=== PATIENT | male | born 1945 | race Caucasian/White ===

== ENCOUNTER 2018-09-09 07:21 | Emergency (ER) | payer MEDICARE, BC ==
[2018-09-09] MEDS ORDERED: DIPH,PERTUS(ACELL)TETVAC-LF 0.5 ML VIAL IM ONE (07:48)
[2018-09-09] MEDS ORDERED: DILTIAZEM DRIP BOLUS FROM BAG 1 MG SOLN IV ONE (07:51)
--- NOTE | 2018-09-09 07:57 | ED ---
General Adult HPI - General Chief complaint: Fall Stated complaint: Fell Time Seen by Provider: 09/09/18 07:31 Source: patient, EMS, RN notes reviewed Mode of arrival: EMS Limitations: altered mental status - History of Present Illness Initial comments: Patient is a pleasant 73-year-old male presenting to the emergency department following a fall. Patient states he feels better now and has no specific complaints. Patient first denies feeling confused however after difficulty answering some questions he does agree that he does feel somewhat confused. Patient reportedly had a fall off 1 step this morning and did have a skin tear to his left arm. Patient denies any head injury. Patient does believe he is on blood thinners however is not clear which one. Patient reportedly had some difficulty with balance. No chest or back pain. No abdominal pain. No dyspnea. No neck pain. Unclear last tetanus immunization. - Related Data Home Medications Medication Instructions Recorded Confirmed Tamsulosin HCl [Flomax] 0.4 mg PO DAILY PRN 04/20/15 04/20/15 Previous Rx's Medication Instructions Recorded Aspirin EC [Ecotrin Low Dose] 81 mg PO DAILY #30 tablet.dr 04/22/15 Atorvastatin [Lipitor] 80 mg PO DAILY #30 tab 04/22/15 Clopidogrel [Plavix] 75 mg PO DAILY #30 tab 04/22/15 Lisinopril [Zestril] 20 mg PO BID #60 tab 04/22/15 Metoprolol Tartrate [Lopressor] 12.5 mg PO BID #30 tab 04/22/15 Nitroglycerin Sl Tabs [Nitrostat] 0.4 mg SUBLINGUAL Q5M PRN #25 tab 04/22/15 Allergies Allergy/AdvReac Type Severity Reaction Status Date / Time No Known Allergies Allergy Verified 09/09/18 07:47 Review of Systems ROS Statement: Those systems with pertinent positive or pertinent negative responses have been documented in the HPI. ROS Other: All systems not noted in ROS Statement are negative. Constitutional: Denies: fever Eyes: Denies: eye pain ENT: Denies: ear pain Respiratory: Denies: cough, dyspnea Cardiovascular: Denies: chest pain Endocrine: Denies: fatigue Gastrointestinal: Denies: abdominal pain Genitourinary: Denies: dysuria Musculoskeletal: Denies: back pain Skin: Denies: rash Neurological: Reports: as per HPI. Denies: headache, weakness Past Medical History Past Medical History: Hyperlipidemia, Hypertension Additional Past Medical History / Comment(s): kidney stones History of Any Multi-Drug Resistant Organisms: None Reported Past Surgical History: Cholecystectomy, Coronary Bypass/CABG, Hernia Repair Additional Past Surgical History / Comment(s): Bilat. eye implants 12 years ago, Past Anesthesia/Blood Transfusion Reactions: No Reported Reaction Past Psychological History: No Psychological Hx Reported Smoking Status: Never smoker Past Alcohol Use History: None Reported Past Drug Use History: None Reported - Past Family History Mother Additional Family Medical History / Comment(s): Blood clot after fall and General Exam Limitations: no limitations General appearance: alert, in no apparent distress Head exam: Present: atraumatic, normocephalic Eye exam: Present: PERRL, other (Patient does have some weakness with lateral movement of the right eye which he states is chronic. 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 Absent: tenderness Respiratory exam: Present: normal lung sounds bilaterally Cardiovascular Exam: Present: tachycardia Expanded Peripheral pulses: 2+: Radial (R), Radial (L), Posterior Tibialis (R), Posterior Tibialis (L) GI/Abdominal exam: Present: soft. Absent: tenderness Extremities exam: Present: other (Skin flap left) Back exam: Present: normal inspection. Absent: tenderness Neurological exam: Present: alert, altered, CN II-XII intact. Absent: motor sensory deficit Expanded Neurological exam: Present: protecting the airway Patient oriented to: Absent: time Cranial nerves: EOM's Intact: Abnormal Right (Patient states chronic), Facial Sensation: Normal Sensory exam: Upper Extremity Light Touch: Normal, Lower Extremity Light Touch: Normal Motor strength exam: RUE: 5, LUE: 5, RLE: 5, LLE: 5 Eye Response: (4) open spontaneously Motor Response: (6) obeys commands Verbal Response: (4) confused conversation Psychiatric exam: Present: normal affect, normal mood Skin exam: Present: other (Skin tear left arm) Course Vital Signs 09/09/18 09/09/18 09/09/18 07:24 07:30 07:45 Temperature 98.3 F Pulse Rate 141 H 142 H 142 H Respiratory 18 18 20 Rate Blood Pressure 141/90 141/90 128/86 O2 Sat by Pulse 95 95 Oximetry 09/09/18 09/09/18 09/09/18 08:00 08:15 08:30 Temperature Pulse Rate 141 H 142 H 146 H Respiratory 18 20 23 Rate Blood Pressure 128/86 151/90 103/84 O2 Sat by Pulse 97 Oximetry 09/09/18 09/09/18 09/09/18 08:45 09:00 09:15 Temperature Pulse Rate 131 H 86 74 Respiratory 17 18 17 Rate Blood Pressure 117/77 116/75 111/77 O2 Sat by Pulse 98 95 95 Oximetry - Reevaluation(s) Reevaluation #1: 09/09/18 09:12 Patient reevaluated and significantly improved. Rhythm has converted to normal sinus rhythm. Patient is a alert and oriented 3. Patient feels better. Patient and family updated on results and plan. 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 Patient was on a heart monitor secondary to A. fib and to watch for arrhythmias and heart rate. EKG Findings - EKG Comments: EKG Findings:: EKG following conversion shows normal sinus rhythm at 83. [place] 164. QRS 106. QT 372. QTC 437. Left axis. Inferior Q waves. No acute ST change. Medical Decision Making - Lab Data Result diagrams: 09/09/18 08:00 09/09/18 08:00 Lab Results 09/09/18 09/09/18 09/09/18 Range/Units 08:00 08:00 08:00 WBC 7.1 (3.8-10.6) k/uL RBC 5.65 (4.30-5.90) m/uL Hgb 15.6 (13.0-17.5) gm/dL Hct 47.1 (39.0-53.0) % MCV 83.5 (80.0-100.0) fL MCH 27.6 (25.0-35.0) pg MCHC 33.1 (31.0-37.0) g/dL RDW 14.6 (11.5-15.5) % Plt Count 167 (150-450) k/uL Neutrophils % 77 % Lymphocytes % 13 % Monocytes % 7 % Eosinophils % 1 % Basophils % 1 % Neutrophils # 5.5 (1.3-7.7) k/uL Lymphocytes # 0.9 L (1.0-4.8) k/uL Monocytes # 0.5 (0-1.0) k/uL Eosinophils # 0.1 (0-0.7) k/uL Basophils # 0.0 (0-0.2) k/uL PT (9.0-12.0) sec INR (<1.2) APTT (22.0-30.0) sec Sodium 139 (137-145) mmol/L Potassium 4.1 (3.5-5.1) mmol/L Chloride 105 (98-107) mmol/L Carbon Dioxide 23 (22-30) mmol/L Anion Gap 11 mmol/L BUN 20 (9-20) mg/dL Creatinine 1.00 (0.66-1.25) mg/dL Est GFR (CKD-EPI)AfAm 85 (>60 ml/min/1.73 sqM) Est GFR (CKD-EPI)NonAf 73 (>60 ml/min/1.73 sqM) Glucose 133 H (74-99) mg/dL Plasma Lactic Acid Igor (0.7-2.0) mmol/L Calcium 8.9 (8.4-10.2) mg/dL Total Bilirubin 2.2 H (0.2-1.3) mg/dL AST 31 (17-59) U/L ALT 40 (21-72) U/L Alkaline Phosphatase 104 (38-126) U/L Total Creatine Kinase 267 H (55-170) U/L CK-MB (CK-2) 2.4 (0.0-2.4) ng/mL CK-MB (CK-2) Rel Index 0.9 Troponin I 0.015 (0.000-0.034) ng/mL Total Protein 7.6 (6.3-8.2) g/dL Albumin 4.2 (3.5-5.0) g/dL Amylase 71 (30-110) U/L Lipase 189 (23-300) U/L Serum Alcohol <10 mg/dL Blood Type Blood Type Recheck Antibody Screen Spec Expiration Date 09/09/18 09/09/18 09/09/18 Range/Units 08:00 08:00 08:00 WBC (3.8-10.6) k/uL RBC (4.30-5.90) m/uL Hgb (13.0-17.5) gm/dL Hct (39.0-53.0) % MCV (80.0-100.0) fL MCH (25.0-35.0) pg MCHC (31.0-37.0) g/dL RDW (11.5-15.5) % Plt Count (150-450) k/uL Neutrophils % % Lymphocytes % % Monocytes % % Eosinophils % % Basophils % % Neutrophils # (1.3-7.7) k/uL Lymphocytes # (1.0-4.8) k/uL Monocytes # (0-1.0) k/uL Eosinophils # (0-0.7) k/uL Basophils # (0-0.2) k/uL PT 11.2 (9.0-12.0) sec INR 1.1 (<1.2) APTT 23.5 (22.0-30.0) sec Sodium (137-145) mmol/L Potassium (3.5-5.1) mmol/L Chloride (98-107) mmol/L Carbon Dioxide (22-30) mmol/L Anion Gap mmol/L BUN (9-20) mg/dL Creatinine (0.66-1.25) mg/dL Est GFR (CKD-EPI)AfAm (>60 ml/min/1.73 sqM) Est GFR (CKD-EPI)NonAf (>60 ml/min/1.73 sqM) Glucose (74-99) mg/dL Plasma Lactic Acid Igor 1.4 (0.7-2.0) mmol/L Calcium (8.4-10.2) mg/dL Total Bilirubin (0.2-1.3) mg/dL AST (17-59) U/L ALT (21-72) U/L Alkaline Phosphatase (38-126) U/L Total Creatine Kinase (55-170) U/L CK-MB (CK-2) (0.0-2.4) ng/mL CK-MB (CK-2) Rel Index Troponin I (0.000-0.034) ng/mL Total Protein (6.3-8.2) g/dL Albumin (3.5-5.0) g/dL Amylase (30-110) U/L Lipase (23-300) U/L Serum Alcohol mg/dL Blood Type O Negative Blood Type Recheck No Antibody Screen NEGATIVE Spec Expiration Date 09/12/2018 - 2300 - Radiology Data Radiology results: report reviewed (Computed tomography scan of the brain shows significant white matter suggesting severe burden of chronic small vessel ischemia. No acute process. Computed tomography scan the C-spine shows no acute process.), image reviewed (Chest and pelvis x-rays show no acute process) Critical Care Time Critical Care Time: Yes Total Critical Care Time: 33 Disposition Clinical Impression: Fall, Atrial fibrillation with RVR, TIA (transient ischemic attack) Disposition: OTHER INSTITUTION NOT DEFINED Is patient prescribed a controlled substance at d/c from ED?: No Referrals: None,Stated [Primary Care Provider] - 1-2 days Time of Disposition: 09:12 - Out of Hospital Transfer - Req. Specs Out of Hospital Transfer - Requested Specifics: Other Emergency Center
[2018-09-09] MEDS ORDERED: DILTIAZEM 125 MG in SODIUM CHLORIDE 0.9% 100 ML IV SCH (08:00)
--- NOTE | 2018-09-09 08:23 | XR ---
EXAMINATION TYPE: XR chest 1V portable DATE OF EXAM: 09/09/2018 COMPARISON: Prior chest x-ray 04/19/2015 HISTORY: Trauma, abnormal chest x-ray TECHNIQUE: Single frontal view of the chest is obtained. FINDINGS: There is no focal air space opacity, pleural effusion, or pneumothorax seen. The cardiac silhouette size is stable. The aorta is dense. There are cardiac leads. Patient is rotated. The oss eous structures are intact. IMPRESSION: No acute process.
[2018-09-09 08:24] LABS: Basophils % (A) 1 %; Eosinophils # (A) 0.1 k/uL (0-0.7); Eosinophils % (A) 1 %; HCT 47.1 % (39.0-53.0); HGB 15.6 gm/dL (13.0-17.5); Lymphocytes # (A) 0.9 k/uL (1.0-4.8); Lymphocytes % (A) 13 %; MCH 27.6 pg (25.0-35.0); MCHC 33.1 g/dL (31.0-37.0); MCV 83.5 fL (80.0-100.0); Mean Platelet Volume 6.8; Monocytes # (A) 0.5 k/uL (0-1.0); Monocytes % (A) 7 %; Neutrophils # (A) 5.5 k/uL (1.3-7.7); Neutrophils % (A) 77 %; Platelet Count 167 k/uL (150-450); RBC 5.65 m/uL (4.30-5.90); RDW 14.6 % (11.5-15.5); WBC 7.1 k/uL (3.8-10.6)
--- NOTE | 2018-09-09 08:24 | XR ---
EXAMINATION TYPE: XR pelvis AP view DATE OF EXAM: 09/09/2018 CLINICAL HISTORY: Fall with pelvic pain TECHNIQUE: A single AP view of the pelvis is obtained. COMPARISON: None. FINDINGS: There is no acute fracture/dislocation evident in the pelvis. Protuberant osteophyte proje cts from the right superior acetabulum. 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 Surgical clips are noted wit hin the left inguinal region. Multiple phleboliths are present within the pelvis. No acute fracture i s seen within the pelvis. IMPRESSION: There is no acute fracture or dislocation in the pelvis. 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
[2018-09-09 08:35] LABS: ALT 40 U/L (21-72); AST 31 U/L (17-59); Albumin 4.2 g/dL (3.5-5.0); Alcohol <10 mg/dL; Alkaline Phosphatase 104 U/L (38-126); Amylase 71 U/L (30-110); Anion Gap 11 mmol/L; Blood Urea Nitrogen 20 mg/dL (9-20); Calcium 8.9 mg/dL (8.4-10.2); Carbon Dioxide 23 mmol/L (22-30); Chloride 105 mmol/L (98-107); Glucose 133 mg/dL (74-99); INR 1.1 (<1.2); Lipase 189 U/L (23-300); Partial Thromboplastin Time 23.5 sec (22.0-30.0); Potassium 4.1 mmol/L (3.5-5.1); Prothrombin Time 11.2 sec (9.0-12.0); Sodium 139 mmol/L (137-145); Total Bilirubin 2.2 mg/dL (0.2-1.3); Total Protein 7.6 g/dL (6.3-8.2)
--- NOTE | 2018-09-09 08:38 | CT ---
EXAMINATION TYPE: CT brain royce dominguez con DATE OF EXAM: 09/09/2018 COMPARISON: None HISTORY: 73-year-old male trauma, altered mental status, Fall downstairs, pt offers no complaints CT DLP: 1429.2 mGycm Automated exposure control for dose reduction was used. Technique: Examination of the head was done in axial plane without intravenous contrast. Coronal and sagittal reconstructions performed. CT of the cervical spine was obtained in axial plane without intravenous injection of contrast mater ial. Coronal and sagittal reformatted images were obtained from the axial views for evaluation of f ractures, spinal alignment and canal. FINDINGS: Head: There is no evidence of acute intracranial hemorrhage, acute ischemic changes, mass, mass-effect, or extra-axial fluid collection. There is no effacement of cerebral sulci or basal subarachnoid cister ns. There is no hydrocephalus. There is no midline shift. Whittaker-white matter distinction is preserv ed. Severe confluent white matter hypodensities in both cerebral hemispheres. No calvarial fracture. Undulating nasal septum. Mastoid air cells well pneumatized. Mild mucosal thic kening throughout the ethmoid air cells. Cervical spine: No craniocervical junction anomaly, predental space widening, or prevertebral soft tissue swelling. D egenerative changes at the C1 dens articulation. Moderate disc/endplate degenerative change especially from C5 through T1 levels. Bridging anterior pl ate spondylosis at these levels suggestive of dish. Assessment of the spinal canal from C3-C4 and bel ow is limited due to artifact from patient's shoulders. No acute fracture of the cervical spine. Alignment is maintained. There are variable moderate to severe bilateral neural foraminal stenoses. Sagittal and coronal reformatted images confirm above findings. COMBINED IMPRESSION: 1. No acute intracranial abnormality seen. Severe confluent white matter hypodensities suggesting sev ere burden of chronic small vessel ischemic disease. 2. No acute fracture or malalignment of the cervical spine. DISH. Variable moderate to severe neurofo raminal stenoses throughout.
[2018-09-09 08:58] LABS: Creatine Kinase MB 2.4 ng/mL (0.0-2.4); Troponin I 0.015 ng/mL (0.000-0.034)
[2018-09-09] MEDS ORDERED: ASPIRIN 81 MG PO STA (09:19)
[2018-09-09] MEDS ORDERED: SODIUM CHLORIDE 0.9% 500 ML 500 ML IV ONE (09:38)
[2018-09-09] MEDS ORDERED: ACETAMINOPHEN TAB 500 MG TAB PO STA (10:22)
[2018-09-09 10:31] VITALS: BP 113/60; PULSE 65
[2018-09-09] MEDS ORDERED: SODIUM CHLORIDE 0.9% 1,000 ML IV SCH (10:45)
[2018-09-09 10:57] VITALS: RESP 18; TEMP 99.5
== END 2018-09-09 10:58 | disposition short-term general hospital (02) ==
LOC: EC 07:21
DX: G45.9 Transient cerebral ischemic attack, unspecified (principal); I48.91 Unspecified atrial fibrillation; S41.112A Laceration without foreign body of left upper arm, initial encounter; H53.001 Unspecified amblyopia, right eye; R00.0 Tachycardia, unspecified; Z95.1 Presence of aortocoronary bypass graft; Z96.89 Presence of other specified functional implants; Z23 Encounter for immunization; W10.9XXA Fall (on) (from) unspecified stairs and steps, initial encounter; Y93.89 Activity, other specified; Y92.009 Unspecified place in unspecified non-institutional (private) residence as the place of occurrence of the external cause
CPT/HCPCS: 36415; 93005; 86900; 86901; 80053; 82150; 82550; 82553; 83605; 83690; 84484; 85025; 85610; 85730; 86850; 72170; 71045; 72125; 70450; 90715; 99291; 96365; 90471; G0480; 80320

== ENCOUNTER 2020-08-23 06:16 | Observation (INO) | payer BC, MEDICARE ==
[2020-08-23] MEDS ORDERED: SODIUM CHLORIDE 0.9% 500 ML 500 ML IV STA (06:20)
--- NOTE | 2020-08-23 06:27 | ED ---
Recheck HPI <Mireille Butt - Last Filed: 08/23/20 08:19> <Sylvain Blair - Last Filed: 08/23/20 08:28> - General Stated Complaint: Syncope Time Seen by Provider: 08/23/20 06:17 - History of Present Illness Initial Comments: 75-year-old male with history of dyslipidemia, hypertension, CAD with quadruple bypass, recent hernia repair at [facility] 4 days ago, early states of dementia per (on medications) presenting today for chief complaint of syncopal episode. Patient states that his had fallen out of bed, got up from the bed after he heard her fall to help her up when he had a syncopal episode, he states he is unsure how long he was unconscious. Patient states when he woke up he noticed he had had an episode of incontinence while he was unconscious. I spoek with who states that she fell out of bed, patient got out of bed quickly, bent over to help but she told him no so he sat down because he felt nauseated, she states he got up to walk to the bed that was 10 feet away and passed out. She states he did not hit his head but did fall from standing. She believes he is on blood thinners but is not sure. denies shaking/seizure like activity. Patient statse that he has had 2 other syncopal episodes and states they usually happen with use of vicodin or other pain medications--she states he did take one last night for post operative pain. Denies noting pain out of proportion. Patient denied history of syncopal episodes however on chart review and appears in 2014 patient had a syncopal episode while doing yard work within that dictation ended noted that in 2004 patient had a similar episode. Also noted that heart rate in 2019 ~83BPM while today by EMS heart rate of in the 40s and on the day of the previous syncopal episode in 2014 (Patient does have early onset dementia per , thus why patient most likely is poor historian over all).Patient denies chest pain, dyspnea, headache, vomiting, jaw pain, arm pain, dyspnea, leg swelling, dyspnea on exertion. Patient states he was feeling "fine" all week and this episode was unexpected. denies complaints prior to syncope and states she feels this is due to vicodin and getting out of bed too fast.PT denies neck pain, vision cox es, weakness, sensation deficits, abdominal pain. Remaining ROS (-). (Mireille Butt) - Related Data Home Medications Medication Instructions Recorded Confirmed Metoprolol Tartrate [Lopressor] 25 mg PO DAILY 09/09/18 09/09/18 cilostazoL [Pletal] 50 mg PO PC-BID 09/09/18 09/09/18 Previous Rx's Medication Instructions Recorded Atorvastatin [Lipitor] 80 mg PO DAILY #30 tab 04/22/15 Allergies Allergy/AdvReac Type Severity Reaction Status Date / Time No Known Allergies Allergy Verified 08/23/20 07:55 Review of Systems ROS Other: All systems not noted in ROS Statement are negative. <Mireille Butt - Last Filed: 08/23/20 08:19> ROS Other: All systems not noted in ROS Statement are negative. <Sylvain Blair - Last Filed: 08/23/20 08:28> ROS Statement: Those systems with pertinent positive or pertinent negative responses have been documented in the HPI. Past Medical History Past Medical History: Hyperlipidemia, Hypertension Additional Past Medical History / Comment(s): kidney stones History of Any Multi-Drug Resistant Organisms: None Reported Past Surgical History: Cholecystectomy, Coronary Bypass/CABG, Hernia Repair Additional Past Surgical History / Comment(s): Bilat. eye implants 12 years ago, Past Anesthesia/Blood Transfusion Reactions: No Reported Reaction Past Psychological History: No Psychological Hx Reported Past Alcohol Use History: None Reported Past Drug Use History: None Reported - Past Family History Mother Additional Family Medical History / Comment(s): Blood clot after fall and <Mireille Butt - Last Filed: 08/23/20 08:19> General Exam <Mireille Butt - Last Filed: 08/23/20 08:19> - General Exam Comments Initial Comments: General: The patient is awake and alert, in no distress Eye: +3 mm pupils are equal, round and reactive to light, extra-ocular movements are intact. No nystagmus. There is normal conjunctiva bilaterally. No signs of icterus. Ears, nose, mouth and throat: There are moist mucous membranes and no oral lesions. Neck: The neck is supple, there is no tenderness or JVD. Cardiovascular: There is a regular rate and rhythm. No murmur, rub or gallop is appreciated. Respiratory: Lungs are clear to auscultation, respirations are non-labored, br eath sounds are equal. No wheezes, stridor, rales, or rhonchi. Gastrointestinal: Soft, non-distended, non-tender abdomen without masses or organomegaly noted. There is no rebound or guarding present. Musculoskeletal: Normal ROM, no tenderness. Strength 5/5. Sensation intact. Radial and DP pulses equal bilaterally 2+. Neurological: A&O x 3. CN II-XII intact, There are no obvious motor or sensory deficits. Coordination appears grossly intact. Speech is normal. Skin: Skin is warm and dry and no rashes or lesions are noted. No LE edema, calf pain or swelling. Psychiatric: Cooperative, appropriate mood & affect, normal judgment. (Mireille Butt) Course Vital Signs 08/23/20 08/23/20 08/23/20 06:22 06:25 06:35 Temperature 97.6 F Pulse Rate 51 L Pulse Rate [ Sitting Acid Bleacher] Pulse Rate [ 50 L Standing Acid Bleacher ] Pulse Rate [ 46 L Supine Acid Bleacher] Respiratory 18 20 Rate Blood Pressure 148/72 Blood Pressure [Right Arm Sitting] Blood Pressure [Right Arm Standing] Blood Pressure 152/76 [Right Arm Supine] O2 Sat by Pulse 98 98 Oximetry 08/23/20 08/23/20 08/23/20 06:36 06:37 07:30 Temperature 97.6 F Pulse Rate 51 L Pulse Rate [ 48 L Sitting Acid Bleacher] Pulse Rate [ 50 L Standing Acid Bleacher ] Pulse Rate [ Supine Acid Bleacher] Respiratory 20 20 16 Rate Blood Pressure 156/78 Blood Pressure 160/75 [Right Arm Sitting] Blood Pressure 151/72 [Right Arm Standing] Blood Pressure [Right Arm Supine] O2 Sat by Pulse 98 98 100 Oximetry Medical Decision Making - Lab Data Result diagrams: 08/23/20 06:22 08/23/20 06:22 <Mireille Butt - Last Filed: 08/23/20 08:19> - Lab Data Result diagrams: 08/23/20 06:22 08/23/20 06:22 <Sylvain Blair - Last Filed: 08/23/20 08:28> - Medical Decision Making 75yo male presenting for cc of syncope hx of syncope. No cheset pain, pain wtih a deep breath, leg swelling/calf pain or hemoptysis. No dyspnea. Pt is not hypoxic. Troponin (-). chart reviewed appear HR varies from visit to visit- once in 80s and during sycopal visits (2014/today-pt bradycardia). Patient has no symptoms. but given repetitive syncopal episodes throughout years, cardiac hx--myself and attending recommend admission for further monitoring/evaluation. (Mireille Butt) Patient reevaluated and reexamined by myself, Dr. Blair. Patient resting comfortably in bed, symptom-free at this time. Patient denies ever having confusion or weakness or chest pain or dyspnea. I do agree with PAs findings. This includes diagnostic interpretation and treatment plan. Radial and pedal pulses 2/4 bilateral. Case was thus in detail with Dr. Borges, who will admit covering for Dr. carlin (JohnnieSylvain) - Lab Data Lab Results 08/23/20 08/23/20 08/23/20 Range/Units 06:22 06:22 06:22 WBC 6.8 (3.8-10.6) k/uL RBC 4.94 (4.30-5.90) m/uL Hgb 14.1 (13.0-17.5) gm/dL Hct 41.0 (39.0-53.0) % MCV 83.1 (80.0-100.0) fL MCH 28.6 (25.0-35.0) pg MCHC 34.4 (31.0-37.0) g/dL RDW 13.8 (11.5-15.5) % Plt Count 185 (150-450) k/uL MPV 7.5 Neutrophils % 55 % Lymphocytes % 29 % Monocytes % 6 % Eosinophils % 9 % Basophils % 1 % Neutrophils # 3.7 (1.3-7.7) k/uL Lymphocytes # 2.0 (1.0-4.8) k/uL Monocytes # 0.4 (0-1.0) k/uL Eosinophils # 0.6 (0-0.7) k/uL Basophils # 0.0 (0-0.2) k/uL PT 10.3 (9.0-12.0) sec INR 1.0 (<1.2) APTT 21.3 L (22.0-30.0) sec Sodium 136 L (137-145) mmol/L Potassium 4.0 (3.5-5.1) mmol/L Chloride 103 (98-107) mmol/L Carbon Dioxide 26 (22-30) mmol/L Anion Gap 7 mmol/L BUN 15 (9-20) mg/dL Creatinine 0.93 (0.66-1.25) mg/dL Est GFR (CKD-EPI)AfAm >90 (>60 ml/min/1.73 sqM) Est GFR (CKD-EPI)NonAf 79 (>60 ml/min/1.73 sqM) Glucose 161 H (74-99) mg/dL Calcium 8.9 (8.4-10.2) mg/dL Magnesium 1.9 (1.6-2.3) mg/dL Total Bilirubin 1.3 (0.2-1.3) mg/dL AST 23 (17-59) U/L ALT 22 (4-49) U/L Alkaline Phosphatase 113 (38-126) U/L Troponin I (0.000-0.034) ng/mL Total Protein 6.7 (6.3-8.2) g/dL Albumin 3.7 (3.5-5.0) g/dL Urine Color Urine Appearance (Clear) Urine pH (5.0-8.0) Ur Specific [place] (1.001-1.035) Urine Protein (Negative) Urine Glucose (UA) (Negative) Urine Ketones (Negative) Urine Blood (Negative) Urine Nitrite (Negative) Urine Bilirubin (Negative) Urine Urobilinogen (<2.0) mg/dL Ur Leukocyte Esterase (Negative) 08/23/20 08/23/20 Range/Units 06:22 06:47 WBC (3.8-10.6) k/uL RBC (4.30-5.90) m/uL Hgb (13.0-17.5) gm/dL Hct (39.0-53.0) % MCV (80.0-100.0) fL MCH (25.0-35.0) pg MCHC (31.0-37.0) g/dL RDW (11.5-15.5) % Plt Count (150-450) k/uL MPV Neutrophils % % Lymphocytes % % Monocytes % % Eosinophils % % Basophils % % Neutrophils # (1.3-7.7) k/uL Lymphocytes # (1.0-4.8) k/uL Monocytes # (0-1.0) k/uL Eosinophils # (0-0.7) k/uL Basophils # (0-0.2) k/uL PT (9.0-12.0) sec INR (<1.2) APTT (22.0-30.0) sec Sodium (137-145) mmol/L Potassium (3.5-5.1) mmol/L Chloride (98-107) mmol/L Carbon Dioxide (22-30) mmol/L Anion Gap mmol/L BUN (9-20) mg/dL Creatinine (0.66-1.25) mg/dL Est GFR (CKD-EPI)AfAm (>60 ml/min/1.73 sqM) Est GFR (CKD-EPI)NonAf (>60 ml/min/1.73 sqM) Glucose (74-99) mg/dL Calcium (8.4-10.2) mg/dL Magnesium (1.6-2.3) mg/dL Total Bilirubin (0.2-1.3) mg/dL AST (17-59) U/L ALT (4-49) U/L Alkaline Phosphatase (38-126) U/L Troponin I <0.012 (0.000-0.034) ng/mL Total Protein (6.3-8.2) g/dL Albumin (3.5-5.0) g/dL Urine Color Yellow Urine Appearance Clear (Clear) Urine pH 6.0 (5.0-8.0) Ur Specific [place] 1.016 (1.001-1.035) Urine Protein Negative (Negative) Urine Glucose (UA) Negative (Negative) Urine Ketones Negative (Negative) Urine Blood Negative (Negative) Urine Nitrite Negative (Negative) Urine Bilirubin Negative (Negative) Urine Urobilinogen 2.0 (<2.0) mg/dL Ur Leukocyte Esterase Negative (Negative) Disposition Is patient prescribed a controlled substance at d/c from ED?: No Time of Disposition: 07:49 Decision to Admit Reason: Admit from EC Decision Date: 08/23/20 Decision Time: 07:49 <Mireille Butt - Last Filed: 08/23/20 08:19> <Sylvain Blair - Last Filed: 08/23/20 08:28> Clinical Impression: Syncope, Bradycardia Disposition: ADMITTED IP TO THIS HOSP Condition: Stable Referrals: Brian Johns MD [Primary Care Provider] - 1-2 days
[2020-08-23 06:36] LABS: Basophils % (A) 1 %; Eosinophils # (A) 0.6 k/uL (0-0.7); Eosinophils % (A) 9 %; HGB 14.1 gm/dL (13.0-17.5); Lymphocytes % (A) 29 %; MCH 28.6 pg (25.0-35.0); MCHC 34.4 g/dL (31.0-37.0); MCV 83.1 fL (80.0-100.0); Mean Platelet Volume 7.5; Monocytes # (A) 0.4 k/uL (0-1.0); Monocytes % (A) 6 %; Neutrophils # (A) 3.7 k/uL (1.3-7.7); Neutrophils % (A) 55 %; Platelet Count 185 k/uL (150-450); RBC 4.94 m/uL (4.30-5.90); RDW 13.8 % (11.5-15.5); WBC 6.8 k/uL (3.8-10.6)
--- NOTE | 2020-08-23 06:42 | XR ---
EXAMINATION TYPE: XR chest 2V DATE OF EXAM: 08/23/2020 COMPARISON: Chest x-ray September 09, 2018. HISTORY: Syncope and weakness. TECHNIQUE: Frontal and lateral views of the chest are obtained. FINDINGS: Overlying sternal wires and mediastinal clips. Background mild chronic parenchymal changes greatest in left lung base and low lung volumes. There is no new suspicious focal air space opacity, pleural effusion, or pneumothorax seen. The cardiac silhouette size is more prominent and mildly en larged on current study. Suspect surgical change right proximal humerus partially imaged. IMPRESSION: Chronic changes and low lung volumes with mild cardiomegaly, no suspicious new acute pu lmonary process.
[2020-08-23 06:49] LABS: Prothrombin Time 10.3 sec (9.0-12.0)
[2020-08-23 06:59] LABS: ALT 22 U/L (4-49); AST 23 U/L (17-59); African American GFR (CKD) >90 (>60 ml/min/1.73 sqM); Albumin 3.7 g/dL (3.5-5.0); Alkaline Phosphatase 113 U/L (38-126); Anion Gap 7 mmol/L; Blood Urea Nitrogen 15 mg/dL (9-20); Calcium 8.9 mg/dL (8.4-10.2); Carbon Dioxide 26 mmol/L (22-30); Chloride 103 mmol/L (98-107); Glucose 161 mg/dL (74-99); Magnesium 1.9 mg/dL (1.6-2.3); Non-African American GFR(CKD) 79 (>60 ml/min/1.73 sqM); Sodium 136 mmol/L (137-145); Total Bilirubin 1.3 mg/dL (0.2-1.3); Total Protein 6.7 g/dL (6.3-8.2)
[2020-08-23 06:59] LABS: Appearance,Urine Clear (Clear); Bilirubin,Urine Negative (Negative); Blood,Urine Negative (Negative); Color,Urine Yellow; Glucose,Urine (UA) Negative (Negative); Ketones,Urine Negative (Negative); Leukocyte Esterase,Urine Negative (Negative); Nitrite,Urine Negative (Negative); Protein,Urine Negative (Negative); Specific Gravity,Urine 1.016 (1.001-1.035)
[2020-08-23 07:00] LABS: Partial Thromboplastin Time 21.3 sec (22.0-30.0)
--- NOTE | 2020-08-23 07:44 | CT ---
EXAMINATION TYPE: CT brain cspine wo con DATE OF EXAM: 08/23/2020 COMPARISON: Trauma CT September 09, 2018 HISTORY: Fall on thinners with headache and neck pain CT DLP: 1434.4 mGycm. Automated Exposure Control for Dose Reduction was Utilized. TECHNIQUE: CT scan of the head and cervical spine are performed without contrast. FINDINGS: There is no acute intracranial hemorrhage or midline shift identified. Mild ventricular a nd sulcal prominence. More marked confluent low attenuation in the deep and periventricular white mat ter is redemonstrated. Finding favored product of chronic small vessel ischemic change in patient of this age. The calvarium is intact. The globes are intact and the visualized sinuses are clear. Cervical spine is visualized in its entirety from C1 through upper thoracic levels and demonstrates s table and satisfactory alignment without evidence of acute fracture or dislocation. Prevertebral sof t tissue appears within normal limits. The C1-C2 articulation remains within normal limits on bowen l images. Vertebral body heights are maintained. Severe anterior spurring C4-C7 levels redemonstrate d [id number] disc space narrowing C5 at C6-C7-T1 level and mild to moderate disc space narrow ing C4-C5 level redemonstrated. Posterior spur disc complexes efface the anterior thecal sac from C4 to C5 through C7-T1 levels. Axial images show multilevel uncovertebral facet degenerative changes con tributing to multilevel bilateral neural foraminal narrowing, reference right C3-C4 and left C2-C3 le vels noted. Thyroid gland remains within normal limits. Lung apices show no pneumothorax. IMPRESSION: 1. There is no acute fracture or dislocation evident in the cervical spine. 2. No acute intracranial hemorrhage or midline shift is seen. No significant change from prior.
[2020-08-23] MEDS ORDERED: NALOXONE 0.4 MG/ML 1 ML VIAL IV PRN (07:50)
[2020-08-23] MEDS ORDERED: HYDROcodone/APAP 5-325MG 1 EACH TAB PO PRN (18:19)
[2020-08-23] MEDS: MEMANTINE 10 MG TAB PO SCH (20:21)
[2020-08-23] MEDS: DONEPEZIL 10 MG TAB PO SCH (20:21)
[2020-08-24 07:15] VITALS: RESP 20; TEMP 97.5
[2020-08-24] MEDS: MEMANTINE 10 MG TAB PO SCH (08:46)
[2020-08-24] MEDS: DONEPEZIL 10 MG TAB PO SCH (08:46)
[2020-08-24] MEDS ORDERED: amLODIPine 5 MG TAB PO SCH (09:00)
[2020-08-24] MEDS ORDERED: ATORVASTATIN 80 MG TAB PO SCH (09:00)
[2020-08-24] MEDS ORDERED: ASPIRIN 81 MG PO SCH (09:00)
[2020-08-24 09:03] VITALS: BP 166/77; PULSE 70
--- NOTE | 2020-08-24 10:26 | P.CRDCN ---
History of Present Illness Consult date: 08/24/20 History of present illness: CHIEF COMPLAINT: Syncope, bradycardia HISTORY OF PRESENT ILLNESS: This is a 75-year-old male with a past medical history significant for dementia, coronary artery disease with previous PCI and CABG, hypertension, hyperlipidemia, and recent hernia repair.. Patient follows in the office with Dr. Javier. We have been asked to see the patient in consultation for syncope and bradycardia. Patient examined this morning at the bedside. Patient has a history of dementia and is somewhat of a poor historian. There is no family present. Patient states that his fell out of the bed and he was trying to help her off the floor but was unable to. Patient believes he felt a little dizzy and then he passed out. Patient believes there was a loss of consciousness but he believes it was for a very short time. He denied biting his tongue. He denied loss of bowel or bladder. However according to the ER physician note, the patient had urinated on himself. Patient states when he came to that he felt fine. He denied confusion, chest pain, shortness of breath, dizziness or lightheadedness, nausea or vomiting. Patient states he was prescribed [place] for pain after his recent hernia repair and he thinks the [place] contributed to his syncope as this has happened to him in the past with narcotics. DIAGNOSTICS: EKG in the emergency room revealed sinus bradycardia. Heart rate 47. No signs of acute ischemia. No evidence of heart block. The patient is not prescribed any AV сергей blocking agents. Orthostatic blood pressures obtained this morning reveal a blood pressure supine 166/77, blood pressure sitting 135/75, and blood pressure standing 118/72. Chest xray chronic changes and low lung volumes with mild cardiomegaly. No suspicious new acute pulmonary process. Laboratory data: WBC 6.8. Hemoglobin 14.1. Platelet count 185. Sodium 136. Potassium 4.0. BUN 15. Creatinine 0.93. Magnesium 1.9. Troponin negative 1. Current home cardiac medications include Norvasc 5 mg daily, Lipitor 80 mg daily, and aspirin 81 mg daily Patient underwent cardiac catheterization in 2014 with PCI to the distal OM and also the ostial left circumflex. Echocardiogram completed in 2015 revealing ejection fraction 50-55%. REVIEW OF SYSTEMS: At the time of my exam: CONSTITUTIONAL: Denies fever or chills. HEENT: Denies blurred vision, vision changes, or eye pain. Denies hemoptysis CARDIOVASCULAR: Denies chest pain, orthopnea, PND or palpitations RESPIRATORY: No shortness of breath. GASTROINTESTINAL: Denies abdominal pain. Denies nausea or vomiting. HEMATOLOGIC: Denies bleeding disorders. GENITOURINARY: Denies any blood in urine. SKIN: Denies pruitis. Denies rash. PHYSICAL EXAM: VITAL SIGNS: Reviewed. GENERAL: Well-developed in no acute distress. HEENT: Head is normocephalic. Pupils are equal, round. Sclerae anicteric. Mucous membranes of the mouth are moist. Neck supple. No JVD or thyromegaly LUNGS: Respirations even and unlabored. Lungs essentially clear to auscultation bilaterally. HEART: Regular rate and rhythm. S1 and S2 heard. ABDOMEN: Soft. Nondistended. Nontender. EXTREMITIES: Normal range of motion. No clubbing or cyanosis. Peripheral pulses intact. No lower extremity edema NEUROLOGIC: Awake and alert. Oriented x 3. ASSESSMENT: Syncope Sinus bradycardia, no evidence of heart block, patient not on any AV сергей blocking agents Positive orthostatic blood pressure changes, without hypotension Recent left inguinal hernia repair, 08/18/2020, at [facility] Coronary artery disease with previous PCI to distal OM and ostial left circumflex 2014 and CABG 1999 Hypertension Hyperlipidemia Dementia PLAN: Obtain 2D echo to assess cardiac structure and function Continue telemetry monitoring to assess for any cardiac arrhythmias Avoid any AV сергей blocking agents Orthostatic blood pressures reviewed. We will decrease Norvasc to 2.5 mg daily Patient with elevated d-dimer. May be secondary to recent surgery. However will obtain CTA to rule out pulmonary embolism as cause for syncopal episode Check TSH and free T4 Further recommendations pending patient course Nurse practitioner note has been reviewed by physician. Signing provider agrees with the documented findings, assessment, and plan of care. Past Medical History Past Medical History: Coronary Artery Disease (CAD), Dementia, Hyperlipidemia, Hypertension, Syncope Additional Past Medical History / Comment(s): Early dementia, falls, fall with R shoulder dislocation/fx upper arm with surgery (occured in past few months). History of Any Multi-Drug Resistant Organisms: None Reported Past Surgical History: Cholecystectomy, Coronary Bypass/CABG, Hernia Repair Additional Past Surgical History / Comment(s): 08/18/20 L inguinal hernia repair at [facility], R arm fracture with hardware, PCI with stent 2014, 4 vessel CABG in 1999, bilateral cataract removals/lens implants Past Anesthesia/Blood Transfusion Reactions: No Reported Reaction Past Psychological History: No Psychological Hx Reported Additional Psychological History / Comment(s): Pt resides with his spouse. He has early dementia. He no longer drives. Pt's spouse drives and manages pt's medications. He is otherwise independent. Smoking Status: Never smoker Past Alcohol Use History: None Reported Past Drug Use History: None Reported - Past Family History Father Additional Family Medical History / Comment(s): Father was an alcoholic and in a MVA. Mother Additional Family Medical History / Comment(s): Blood clot after fall and Medications and Allergies Home Medications Medication Instructions Recorded Confirmed Type Atorvastatin [Lipitor] 80 mg PO DAILY #30 tab 04/22/15 08/23/20 Rx Aspirin EC [Ecotrin Low Dose] 81 mg PO DAILY 08/23/20 08/23/20 History Donepezil HCl [Aricept] 10 mg PO BID 08/23/20 08/23/20 History HYDROcodone/APAP 5-325MG [[place] 1 tab PO Q8H PRN 08/23/20 08/23/20 History 5-325] Memantine [Namenda] 10 mg PO BID 08/23/20 08/23/20 History amLODIPine [Norvasc] 5 mg PO DAILY 08/23/20 08/23/20 History Allergies Allergy/AdvReac Type Severity Reaction Status Date / Time No Known Allergies Allergy Verified 08/23/20 08:40 Physical Exam Vitals: Vital Signs Temp Pulse Pulse Pulse Pulse Pulse Pulse 08/24/20 08:49 70 70 08/24/20 06:48 97.5 F L 53 L 08/24/20 01:54 97.8 F 57 L 08/23/20 20:00 97.6 F 53 L 08/23/20 18:10 98.1 F 59 L 08/23/20 15:53 97.6 F 52 L 08/23/20 13:04 97.6 F 53 L 08/23/20 11:32 97.9 F 50 L Pulse Resp BP BP BP BP Pulse Ox 08/24/20 08:49 61 135/75 118/72 166/77 08/24/20 06:48 20 158/77 97 08/24/20 01:54 15 110/68 98 08/23/20 20:00 16 163/73 99 08/23/20 18:10 18 170/80 97 08/23/20 15:53 16 138/78 98 08/23/20 13:04 16 144/83 96 08/23/20 11:32 16 138/78 97 Intake and Output 08/23/20 08/24/20 08/24/20 22:59 06:59 14:59 Intake Total 240 Balance 240 Intake: Oral 240 Other: Voiding Method Toilet Toilet # Voids 1 1 Results 08/23/20 06:22 08/23/20 06:22 Current Medications Generic Name Dose Route Start Last Admin Trade Name Freq PRN Reason Stop Dose Admin Hydrocodone Bitart/Acetaminophen 1 each 08/23/20 18:19 Hydrocodone/Apap 5-325mg 1 Each Tab PO Q8H PRN Pain Amlodipine Besylate 5 mg 08/24/20 09:00 08/24/20 08:46 Amlodipine 5 Mg Tab PO 5 mg DAILY RENATA Administration Aspirin 81 mg 08/24/20 09:00 08/24/20 08:45 Aspirin 81 Mg PO 81 mg DAILY RENATA Administration Atorvastatin Calcium 80 mg 08/24/20 09:00 08/24/20 08:46 Atorvastatin 80 Mg Tab PO 80 mg DAILY RENATA Administration Donepezil HCl 10 mg 08/23/20 21:00 08/24/20 08:46 Donepezil 10 Mg Tab PO 10 mg BID RENATA Administration Memantine 10 mg 08/23/20 21:00 08/24/20 08:46 Memantine 10 Mg Tab PO 10 mg BID RENATA Administration Naloxone HCl 0.2 mg 08/23/20 07:50 Naloxone 0.4 Mg/Ml 1 Ml Vial IV Q2M PRN Opioid Reversal Intake and Output 08/23/20 08/24/20 08/24/20 22:59 06:59 14:59 Intake Total 240 Balance 240 Intake: Oral 240 Other: Voiding Method Toilet Toilet # Voids 1 1 08/23/20 06:22 08/23/20 06:22
--- NOTE | 2020-08-24 11:06 | ECHOF ---
Referral Reason:LV function MEASUREMENTS -------- HEIGHT: 180.3 cm WEIGHT: 83.9 kg BP: RVIDd: 3.1 cm (< 3.3) IVSd: 1.2 cm (0.6 - 1.1) LVIDd: 3.5 cm (3.9 - 5.3) LVPWd: 1.5 cm (0.6 - 1.1) IVSs: 1.9 cm LVIDs: 2.3 cm LVPWs: 2.3 cm LAESV Index (A-L): 41.77 ml/m Ao Diam: 3.3 cm (2.0 - 3.7) AV Cusp: 1.9 cm (1.5 - 2.6) LA Diam: 4.6 cm (2.7 - 3.8) MV EXCURSION: 15.568 mm (> 18.000) MV EF SLOPE: 50 mm/s (70 - 150) EPSS: 0.8 cm MV E Geovany: 0.63 m/s MV DecT: 149 ms MV A Geovany: 0.40 m/s MV E/A Ratio: 1.58 RAP: 5.00 mmHg RVSP: 22.99 mmHg FINDINGS -------- This was a technically difficult study with suboptimal views. The left ventricular size is normal. There is mild concentric left ventricular hypertrophy. Overa ll left ventricular systolic function is low-normal with, an EF between 50 - 55 %. There is paradox ical/dysynergic septal motion consistent with left bundle branch block. Normal LAP Grade 1 Diastoli c Dysfunction The right ventricle is normal in size. LA is severely dilated >40 ml/m2 The right atrial size is normal. 5.0mg of Lumason was utilized for enhancement of images Aneurysmal Interatrial septum. Possible PFO The aortic valve is trileaflet and appears structurally normal. The mitral valve is normal. Mild mitral regurgitation is present. The tricuspid valve appears structurally normal. Mild tricuspid regurgitation present. Right vent ricular systolic pressure is normal at < 35 mmHg. Trace/mild (physiologic) pulmonic regurgitation. The aortic root size is normal. IVC Not well visulized. There is no pericardial effusion. CONCLUSIONS -------- 1. The left ventricular size is normal. 2. There is mild concentric left ventricular hypertrophy. 3. Overall left ventricular systolic function is low-normal with, an EF between 50 - 55 %. 4. There is paradoxical/dysynergic septal motion consistent with left bundle branch block. 5. Normal LAP Grade 1 Diastolic Dysfunction 6. LA is severely dilated >40 ml/m2 7. Aneurysmal Interatrial septum. 8. Possible PFO 9. Mild mitral regurgitation is present. 10. Mild tricuspid regurgitation present. 11. Trace/mild (physiologic) pulmonic regurgitation. 12. There is no pericardial effusion. [employer] SALESPERSON: Allyssa Major RDCS
--- NOTE | 2020-08-24 11:40 | P.HPIM ---
History of Present Illness H&P Date: 08/23/20 Chief Complaint: Syncope/bradycardia 75-year-old male patient, history of dementia, CAD with PCI/CABG, hypertension, hyperlipidemia presents to ED with reported history from as patient fell out of bed and she wasn't able to help patient off the floor; patient reports he felt possibly dizzy and feels like he passed out; patient has dementia and unable to provide any sound reliable history the most of the history is obtained from the chart; Workup in ED including an EKG to feels sinus bradycardia without any ischemic changes Patient was checked for orthostatic vital signs and didn't reveal drop in blood pressure from 166/77-118/72 Chest x-ray reveals chronic changes; CBC WBC is 6.8, hemoglobin 14.1 and platelet count of 185; chemical profile sodium 136, potassium 4.2, BUN 15,'s creatinine 0.93 with magnesium of 1.9 and troponin negative 1 Patient is admitted to the hospital for further syncope workup Review of Systems REVIEW OF SYSTEMS: CONSTITUTIONAL: No fever, no malaise, no fatigue. HEENT: No recent visual problems or hearing problems. Denied any sore throat. CARDIOVASCULAR: No chest pain, orthopnea, PND, no palpitations, no syncope. PULMONARY: No shortness of breath, no cough, no hemoptysis. GASTROINTESTINAL: No diarrhea, no nausea, no vomiting, no abdominal pain. NEUROLOGICAL: No headaches, no weakness, no numbness. HEMATOLOGICAL: Denies any bleeding or petechiae. GENITOURINARY: Denies any burning micturition, frequency, or urgency. MUSCULOSKELETAL/RHEUMATOLOGICAL: Denies any joint pain, swelling, or any muscle pain. ENDOCRINE: Denies any polyuria or polydipsia. The rest of the 14-point review of systems is negative. Past Medical History Past Medical History: Coronary Artery Disease (CAD), Dementia, Hyperlipidemia, Hypertension, Syncope Additional Past Medical History / Comment(s): Early dementia, falls, fall with R shoulder dislocation/fx upper arm with surgery (occured in past few months). History of Any Multi-Drug Resistant Organisms: None Reported Past Surgical History: Cholecystectomy, Coronary Bypass/CABG, Hernia Repair Additional Past Surgical History / Comment(s): 08/18/20 L inguinal hernia repair at [facility], R arm fracture with hardware, PCI with stent 2014, 4 vessel CABG in 1999, bilateral cataract removals/lens implants Past Anesthesia/Blood Transfusion Reactions: No Reported Reaction Past Psychological History: No Psychological Hx Reported Additional Psychological History / Comment(s): Pt resides with his spouse. He has early dementia. He no longer drives. Pt's spouse drives and manages pt's medications. He is otherwise independent. Smoking Status: Never smoker Past Alcohol Use History: None Reported Past Drug Use History: None Reported - Past Family History Father Additional Family Medical History / Comment(s): Father was an alcoholic and in a MVA. Mother Additional Family Medical History / Comment(s): Blood clot after fall and Medications and Allergies Home Medications Medication Instructions Recorded Confirmed Type Atorvastatin [Lipitor] 80 mg PO DAILY #30 tab 04/22/15 08/23/20 Rx Aspirin EC [Ecotrin Low Dose] 81 mg PO DAILY 08/23/20 08/23/20 History Donepezil HCl [Aricept] 10 mg PO BID 08/23/20 08/23/20 History HYDROcodone/APAP 5-325MG [[place] 1 tab PO Q8H PRN 08/23/20 08/23/20 History 5-325] Memantine [Namenda] 10 mg PO BID 08/23/20 08/23/20 History amLODIPine [Norvasc] 5 mg PO DAILY 08/23/20 08/23/20 History Allergies Allergy/AdvReac Type Severity Reaction Status Date / Time No Known Allergies Allergy Verified 08/23/20 08:40 Physical Exam Vitals: Vital Signs Temp Pulse Pulse Pulse Pulse Resp BP 08/23/20 07:30 97.6 F 51 L 16 156/78 08/23/20 06:37 50 L 20 08/23/20 06:36 48 L 20 08/23/20 06:35 46 L 20 08/23/20 06:25 50 L 08/23/20 06:22 97.6 F 51 L 18 148/72 BP BP BP Pulse Ox 08/23/20 07:30 100 08/23/20 06:37 151/72 98 08/23/20 06:36 160/75 98 08/23/20 06:35 152/76 98 08/23/20 06:25 08/23/20 06:22 98 Intake and Output 08/22/20 08/23/20 08/23/20 22:59 06:59 14:59 Other: Weight 83.915 kg 83.915 kg - Constitutional General appearance: Present: average body habitus, cooperative, no acute distress - EENT Eyes: Present: anicteric sclerae, EOMI, PERRLA, normal appearance ENT: Present: hearing grossly normal, normal oropharynx Ears: bilateral: normal - Neck Neck: Present: normal ROM. Absent: lymphadenopathy, rigidity, thyromegaly Carotids: negative: bruit present Thyroid: bilateral: normal size, negative: enlarged, nodule - Respiratory Respiratory: bilateral: CTA, negative: rales, rhonchi, wheezing - Cardiovascular Rhythm: regular Heart sounds: normal: S1, S2 Abnormal Heart Sounds: Absent: systolic murmur, diastolic murmur - Gastrointestinal General gastrointestinal: Present: normal bowel sounds, soft. Absent: distended, organomegaly, tenderness - Genitourinary Genitourinary Comment(s): deferred - Integumentary Integumentary: Present: normal turgor. Absent: jaundiced, rash, ulcer - Neurologic Neurologic: Present: CNII-XII intact. Absent: focal deficits - Musculoskeletal Musculoskeletal: Present: gait normal, strength equal bilaterally - Psychiatric Psychiatric: Present: A&O x's 3, appropriate affect, intact judgment & insight Results CBC & Chem 7: 08/23/20 06:22 08/23/20 06:22 Labs: Abnormal Lab Results - Last 24 Hours (Table) 08/23/20 08/23/20 Range/Units 06:22 06:22 APTT 21.3 L (22.0-30.0) sec Sodium 136 L (137-145) mmol/L Glucose 161 H (74-99) mg/dL Thrombosis Risk Factor Assmnt - Choose All That Apply Any of the Below Risk Factors Present?: Yes Other Risk Factors: Yes Each Risk Factor Represents 3 Points: Age 75 years or older Other congenital or acquired thrombophilia - If yes, enter type in comment: No Thrombosis Risk Factor Assessment Total Risk Factor Score: 3 Thrombosis Risk Factor Assessment Level: Moderate Risk Assessment and Plan Assessment: 1. Acute syncope - Patient will be admitted to telemetry; monitor EKG and cardiac enzymes; check 2-D echo - Cardiology is consulted and recommending to avoid AV blocking agents - Monitor orthostatic vital signs; patient had positive orthostatic blood pressure changes without hypotension; Amlodipine dose is decreased to 2.5 mg daily - Elevated d-dimer; plan to obtain CTA chest to rule out PE - Thyroid profile is ordered and pending 2. Bradycardia; asymptomatic - Patient has no evidence of heart block; not on any AV сергей blocking agent - Thyroid profile is ordered and pending 3. Hypertension; patient takes amlodipine 5 mg daily; orthostatic vital signs were positive without hypotension - Cardiology on board and recommended to cut back on amlodipine down to 2.5 mg daily 4. Elevated d-dimer; rule out PE; CTA chest is ordered 6. Hyperlipidemia; continue home dose of Lipitor 80 mg daily 7. CAD with previous PCI and CABG 4 in 1999 DVT prophylaxis SCDs CODE STATUS; full code
--- NOTE | 2020-08-24 11:47 | CT ---
CT CHEST FOR PULMONARY EMBOLISM. EXAMINATION TYPE: CT chest angio for PE DATE OF EXAM: 08/24/2020 INDICATION: Shortness of breath CT DLP: 564 mGycm, Automated exposure control for dose reduction was used. CONTRAST: Patient injected with 100 mL of Isovue 370. COMPARISON: None TECHNIQUE: CT of the chest is performed on a spiral scan at 2 mm thick sections. Study is performed with intravenous contrast timed for evaluation for pulmonary embolism. This will limit additional po rtions of the evaluation. 3-D MIP images reconstructed by the technologist are reviewed on the compu ter in the coronal and sagittal planes. FINDINGS: No persistent filling defects are evident to suggest an acute pulmonary embolism. No mediastinal or hilar adenopathy enlarged by CT criteria is evident. The ascending aorta diameter at the level of the main pulmonary artery is 3.8 cm. The main pulmonary artery diameter at the bifur cation is 2.6 cm. Lung windows are clear. Limited CT section through the upper abdomen are unremarkable. IMPRESSIONS: 1. No acute pulmonary embolism
[2020-08-25] MEDS ORDERED: amLODIPine 2.5 MG TAB PO SCH (09:00)
== END 2020-08-24 15:00 | disposition home or self-care (01) ==
LOC: EC 06:16 → 6NMEDSUR 08:29
PROVIDERS: ADMIT Hospitalist; ATTEND Hospitalist
DX: R55 Syncope and collapse (principal); R00.1 Bradycardia, unspecified; R79.89 Other specified abnormal findings of blood chemistry; I10 Essential (primary) hypertension; E78.5 Hyperlipidemia, unspecified; I25.10 Atherosclerotic heart disease of native coronary artery without angina pectoris; F03.90 Unspecified dementia, unspecified severity, without behavioral disturbance, psychotic disturbance, mood disturbance, and anxiety; R03.1 Nonspecific low blood-pressure reading; R32 Unspecified urinary incontinence; R11.0 Nausea; W18.30XA Fall on same level, unspecified, initial encounter; Z79.899 Other long term (current) drug therapy; Z95.1 Presence of aortocoronary bypass graft; Z79.82 Long term (current) use of aspirin; Z79.891 Long term (current) use of opiate analgesic; Z81.1 Family history of alcohol abuse and dependence; Z90.49 Acquired absence of other specified parts of digestive tract; Z91.81 History of falling; Z79.02 Long term (current) use of antithrombotics/antiplatelets; Z87.442 Personal history of urinary calculi; Z95.5 Presence of coronary angioplasty implant and graft; Z96.1 Presence of intraocular lens; Z20.822 Contact with and (suspected) exposure to COVID-19
CPT/HCPCS: 99285; 36415; 93005; 85379; 80053; 84443; 83735; 84484; 85025; 85610; 85730; 81003; 87635; 71046; 72125; 70450; 71275; G0378 ×2; C8929; Q9950; Q9967; 93306

== ENCOUNTER 2022-12-08 10:31 | Inpatient (IN) | payer MEDICARE ==
[2022-12-08 10:55] LABS: Glucose,Whole Blood 117 mg/dL (70-110)
[2022-12-08] MEDS ORDERED: DIPH,PERTUS(ACELL)TETVAC-LF 0.5 ML VIAL IM ONE (11:01)
[2022-12-08] MEDS ORDERED: SODIUM CHLORIDE 0.9% 500 ML 500 ML IV STA (11:01)
--- NOTE | 2022-12-08 11:08 | ED ---
General Adult HPI - General Chief complaint: Neuro Symptoms/Deficit Stated complaint: poss stroke Time Seen by Provider: 12/08/22 10:35 Source: patient, RN notes reviewed, old records reviewed Mode of arrival: wheelchair Limitations: no limitations - History of Present Illness Initial comments: This is a 77-year-old male presents emergency Department with alexander. Patient is a poor historian so Alexander gives most of the history. Grandson states when the patient woke up the people that were with him stated he was not his normal baseline and there was some right-sided facial droop. According to people that were with EMS that he was normal when he went to bed. This grandson states that when he initially saw that he had right facial droop but that has since gone away patient has no facial droop anymore he is able to speak and he is at his ba seline neurologically according to grandson is able to walk all 4 extremities without problem. Patient has no complaints though again he has significant dementia so his history is not always accurate. Patient denies any chest pain difficulty breathing. Patient denies any recent fever chills. Patient was up for a while and then fell and hit his head and has a small laceration to the lateral aspect of his scalp on the left. - Related Data Home Medications Medication Instructions Recorded Confirmed Aspirin EC [Ecotrin Low Dose] 81 mg PO DAILY 08/23/20 11/01/20 Donepezil HCl [Aricept] 10 mg PO BID 08/23/20 11/01/20 Memantine [Namenda] 10 mg PO BID 08/23/20 11/01/20 Previous Rx's Medication Instructions Recorded Atorvastatin [Lipitor] 80 mg PO DAILY #30 tab 04/22/15 amLODIPine [Norvasc] 2.5 mg PO DAILY #30 tab 08/24/20 Allergies Allergy/AdvReac Type Severity Reaction Status Date / Time No Known Allergies Allergy Verified 12/08/22 10:34 Review of Systems ROS Statement: Those systems with pertinent positive or pertinent negative responses have been documented in the HPI. ROS Other: All systems not noted in ROS Statement are negative. Past Medical History Past Medical History: Coronary Artery Disease (CAD), Dementia, Hyperlipidemia, Hypertension, Syncope Additional Past Medical History / Comment(s): Recent Bradycardia and Syncope X2. Early dementia, falls, fall with right shoulder dislocation/fx upper arm with surgery. History of Any Multi-Drug Resistant Organisms: None Reported Past Surgical History: Cholecystectomy, Coronary Bypass/CABG, Hernia Repair Additional Past Surgical History / Comment(s): Left inguinal hernia repair, right arm fracture with hardware, PCI with stent 2014, 4 vessel CABG in 1999, bilateral cataract removals/lens implants. Past Anesthesia/Blood Transfusion Reactions: No Reported Reaction Past Psychological History: No Psychological Hx Reported Smoking Status: Never smoker Past Alcohol Use History: None Reported Past Drug Use History: None Reported General Exam - General Exam Comments Initial Comments: GENERAL: Patient is well-developed and well-nourished. Patient is nontoxic and well- hydrated and is in mild distress. ENT: Neck is soft and supple. No significant lymphadenopathy is noted. Oropharynx is clear. Moist mucous membranes. Neck has full range of motion without eliciting any pain EYES: The sclera were anicteric and conjunctiva were pink and moist. Extraocular movements were intact and pupils were equal round and reactive to light. Eyelids were unremarkable. PULMONARY: Unlabored respirations. Good breath sounds bilaterally. No audible rales rhonchi or wheezing was noted. CARDIOVASCULAR: There is a regular rate and rhythm without any murmurs gallops or rubs. ABDOMEN: Soft and nontender with normal bowel sounds. SKIN: Skin is clear with no lesions or rashes and otherwise unremarkable. NEUROLOGIC: Patient is alert and oriented x3. Cranial nerves II through XII are grossly intact. Motor and sensory are also intact. Normal speech, volume and content. Symmetrical smile. Cerebellar exam grossly intact. Patient currently has an NIH of MUSCULOSKELETAL: Normal extremities with adequate strength and full range of motion. LYMPHATICS: No significant lymphadenopathy is noted PSYCHIATRIC: Normal psychiatric evaluation. Limitations: no limitations Course Vital Signs 12/08/22 10:34 Temperature 98 F Pulse Rate 62 Respiratory 16 Rate Blood Pressure 136/72 O2 Sat by Pulse 98 Oximetry Medical Decision Making - Medical Decision Making EKG was interpreted by myself. Patient's has a sinus rhythm at 67 bpm MD interval 169 QRS 117 QT intervals 412 QTC is [address] segment elevation or depression.. Was pt. sent in by a medical professional or institution (, PA, [facility], urgent care, hospital, or [facility]...) When possible be specific @ -No Did you speak to anyone other than the patient for history (EMS, parent, family, police, friend...)? What history was obtained from this source @ -Alexander gave almost all the history Did you review nursing and triage notes (agree or disagree)? Why? @ -I reviewed and agree with nursing and triage notes Were old charts reviewed (outside hosp., previous admission, EMS record, old EKG, old radiological studies, urgent care reports/EKG's, [facility] records)? Report findings @ -I reviewed prior lab work prior rate of substance patient Differential Diagnosis (chest pain, altered mental status, abdominal pain women, abdominal pain men, vaginal bleeding, weakness, fever, dyspnea, syncope, headache, dizziness, GI bleed, back pain, seizure, CVA, palpatations, mental health, musculoskeletal)? @ -Differential CVA Ischemic stroke, hemorrhagic stroke, brain tumor, atypical migraine, Wernicke's encephalopathy, seizure, multiple sclerosis, meningitis, encephalitis, hypoglycemia, Guillain-Baxter, electrolytes disturbance, myasthenia gravis.... This is not meant to be an all-inclusive list EKG interpreted by me (3pts min.). @ -As above X-rays interpreted by me (1pt min.). @ -Chest x-ray shows no acute abnormality CT interpreted by me (1pt min.). @ -CT of the brain shows no acute abnormalities. CTA shows no acute abnormality. U/S interpreted by me (1pt. min.). @ -None done What testing was considered but not performed or refused? (CT, X-rays, U/S, labs)? Why? @ -None What meds were considered but not given or refused? Why? @ -None Did you discuss the management of the patient with other professionals (professionals i.e. , PA, [employer], lab, RT, psych nurse, social worker assistant, adjunct latin professor, teacher, compliance review officer, telephonic nurse case manager)? Give summary @ -Spoke with Dr. Gerardo of [facility] and he agreed to admit the patient Was smoking cessation discussed for >3mins.? @ -No Was critical care preformed (if so, how long)? @ -No Were there social determinants of health that impacted care today? How? (Homelessness, low income, unemployed, alcoholism, drug addiction, transportation, low edu. Level, literacy, decrease access to med. care, retirement, rehab)? @ -No Was there de-escalation of care discussed even if they declined (Discuss DNR or withdrawal of care, Hospice)? DNR status @ -No What co-morbidities impacted this encounter? (DM, HTN, Smoking, COPD, CAD, Cancer, CVA, ARF, Chemo, Hep., AIDS, mental health diagnosis, sleep apnea, morbid obesity)? @ -None Was patient admitted / discharged? Hospital course, mention meds given and route, prescriptions, significant lab abnormalities, going to OR and other pertinent info. @ -Patient has small abrasion to the left side of his head which did not need any repair elevation to get a tetanus for this. Patient had CT CTA of his brain and neck and this showed no acute abnormality. However patient did exhibit some strokelike symptoms prior to arrival and he will be admitted for TIA and neuro will be consulted Undiagnosed new problem with uncertain prognosis? @ -No Drug Therapy requiring intensive monitoring for toxicity (Heparin, Nitro, Insulin, Cardizem)? @ -No Were any procedures done? @ -No Diagnosis/symptom? @ -TIA Acute, or Chronic, or Acute on Chronic? @ -Acute Uncomplicated (without systemic symptoms) or Complicated (systemic symptoms)? @ -Complicated Side effects of treatment? @ -No Exacerbation, Progression, or Severe Exacerbation? @ -No Poses a threat to life or bodily function? How? (Chest pain, [place], [place], pneumonia, PE, COPD, DKA, ARF, appy, cholecystitis, CVA, Diverticulitis, Homicidal, Suicidal, threat to staff... and all critical care pts) @ -Yes this could lead to a larger stroke possible morbidity or mortality Diagnosis/symptom? @ -Blunt head trauma Acute, or Chronic, or Acute on Chronic? @ -Acute Uncomplicated (without systemic symptoms) or Complicated (systemic symptoms)? @ -Complicated Side effects of treatment? @ -none Exacerbation, Progression, or Severe Exacerbation] @ -no Poses a threat to life or bodily function? @ -no - Lab Data Result diagrams: 12/08/22 11:04 12/08/22 11:04 Lab Results 12/08/22 12/08/22 12/08/22 Range/Units 10:54 11:04 11:04 WBC 8.9 (3.8-10.6) k/uL RBC 5.73 (4.30-5.90) m/uL Hgb 16.4 (13.0-17.5) gm/dL Hct 49.3 (39.0-53.0) % MCV 86.2 (80.0-100.0) fL MCH 28.6 (25.0-35.0) pg MCHC 33.2 (31.0-37.0) g/dL RDW 14.1 (11.5-15.5) % Plt Count 174 (150-450) k/uL MPV 8.0 Neutrophils % 84 % Lymphocytes % 10 % Monocytes % 5 % Eosinophils % 0 % Basophils % 0 % Neutrophils # 7.5 (1.3-7.7) k/uL Lymphocytes # 0.9 L (1.0-4.8) k/uL Monocytes # 0.4 (0-1.0) k/uL Eosinophils # 0.0 (0-0.7) k/uL Basophils # 0.0 (0-0.2) k/uL PT 10.6 (9.0-12.0) sec INR 1.0 (<1.2) APTT 24.1 (22.0-30.0) sec Sodium (137-145) mmol/L Potassium (3.5-5.1) mmol/L Chloride (98-107) mmol/L Carbon Dioxide (22-30) mmol/L Anion Gap mmol/L BUN (9-20) mg/dL Creatinine (0.66-1.25) mg/dL Est GFR (CKD-EPI)AfAm (>60 ml/min/1.73 sqM) Est GFR (CKD-EPI)NonAf (>60 ml/min/1.73 sqM) Glucose (74-99) mg/dL POC Glucose (mg/dL) 117 H (70-110) mg/dL POC Glu Stretching Press Operator ID John Dozier Calcium (8.4-10.2) mg/dL Total Bilirubin (0.2-1.3) mg/dL AST (17-59) U/L ALT (4-49) U/L Alkaline Phosphatase (38-126) U/L Creatine Kinase (55-170) U/L Troponin I (0.000-0.034) ng/mL Total Protein (6.3-8.2) g/dL Albumin (3.5-5.0) g/dL 06/17/23 06/17/23 Range/Units 11:04 11:04 WBC (3.8-10.6) k/uL RBC (4.30-5.90) m/uL Hgb (13.0-17.5) gm/dL Hct (39.0-53.0) % MCV (80.0-100.0) fL MCH (25.0-35.0) pg MCHC (31.0-37.0) g/dL RDW (11.5-15.5) % Plt Count (150-450) k/uL MPV Neutrophils % % Lymphocytes % % Monocytes % % Eosinophils % % Basophils % % Neutrophils # (1.3-7.7) k/uL Lymphocytes # (1.0-4.8) k/uL Monocytes # (0-1.0) k/uL Eosinophils # (0-0.7) k/uL Basophils # (0-0.2) k/uL PT (9.0-12.0) sec INR (<1.2) APTT (22.0-30.0) sec Sodium 140 (137-145) mmol/L Potassium 4.1 (3.5-5.1) mmol/L Chloride 102 (98-107) mmol/L Carbon Dioxide 27 (22-30) mmol/L Anion Gap 11 mmol/L BUN 14 (9-20) mg/dL Creatinine 0.89 (0.66-1.25) mg/dL Est GFR (CKD-EPI)AfAm >90 (>60 ml/min/1.73 sqM) Est GFR (CKD-EPI)NonAf 82 (>60 ml/min/1.73 sqM) Glucose 127 H (74-99) mg/dL POC Glucose (mg/dL) (70-110) mg/dL POC Glu Stretching Press Operator ID Calcium 9.0 (8.4-10.2) mg/dL Total Bilirubin 2.2 H (0.2-1.3) mg/dL AST 28 (17-59) U/L ALT 29 (4-49) U/L Alkaline Phosphatase 145 H (38-126) U/L Creatine Kinase 165 (55-170) U/L Troponin I <0.012 (0.000-0.034) ng/mL Total Protein 7.9 (6.3-8.2) g/dL Albumin 4.4 (3.5-5.0) g/dL Disposition Clinical Impression: Transient cerebral ischemia, Blunt head trauma Disposition: ADMITTED IP TO THIS HOSP Referrals: Brian Johns MD [Primary Care Provider] - 1-2 days Time of Disposition: 13:46
[2022-12-08 11:25] LABS: ALT 29 U/L (4-49); AST 28 U/L (17-59); African American GFR (CKD) >90 (>60 ml/min/1.73 sqM); Albumin 4.4 g/dL (3.5-5.0); Alkaline Phosphatase 145 U/L (38-126); Anion Gap 11 mmol/L; Blood Urea Nitrogen 14 mg/dL (9-20); Carbon Dioxide 27 mmol/L (22-30); Chloride 102 mmol/L (98-107); Creatine Kinase 165 U/L (55-170); Glucose 127 mg/dL (74-99); Non-African American GFR(CKD) 82 (>60 ml/min/1.73 sqM); Potassium 4.1 mmol/L (3.5-5.1); Sodium 140 mmol/L (137-145); Total Bilirubin 2.2 mg/dL (0.2-1.3); Total Protein 7.9 g/dL (6.3-8.2)
[2022-12-08 11:26] LABS: Partial Thromboplastin Time 24.1 sec (22.0-30.0); Prothrombin Time 10.6 sec (9.0-12.0)
[2022-12-08 11:30] LABS: Basophils % (A) 0 %; Eosinophils % (A) 0 %; HCT 49.3 % (39.0-53.0); HGB 16.4 gm/dL (13.0-17.5); Lymphocytes # (A) 0.9 k/uL (1.0-4.8); Lymphocytes % (A) 10 %; MCH 28.6 pg (25.0-35.0); MCHC 33.2 g/dL (31.0-37.0); MCV 86.2 fL (80.0-100.0); Monocytes # (A) 0.4 k/uL (0-1.0); Monocytes % (A) 5 %; Neutrophils # (A) 7.5 k/uL (1.3-7.7); Neutrophils % (A) 84 %; Platelet Count 174 k/uL (150-450); RBC 5.73 m/uL (4.30-5.90); RDW 14.1 % (11.5-15.5); WBC 8.9 k/uL (3.8-10.6)
--- NOTE | 2022-12-08 12:19 | CT ---
EXAMINATION TYPE: CT brain wo con CT DLP: 1150.4 mGycm, Automated exposure control for dose reduction was used. DATE OF EXAM: 12/08/2022 12:04 PM COMPARISON: 08/23/2020. CLINICAL INDICATION:Male, 77 years old with history of Neuro deficit, acute, stroke suspected, Neuro deficit TECHNIQUE: Brain: Axial CT images of the brain were obtained with coronal and sagittal reformats created and rev iewed. Contrast used: None. Oral contrast used: None. FINDINGS: Brain: Extra-axial spaces: No abnormal extra-axial fluid collections. Ventricular system: Dilatation in proportion to cerebral atrophy. Cerebral parenchyma: Cerebral atrophy. No acute intraparenchymal hemorrhage or mass effect. The potter -white junction is well differentiated. Scattered hypoattenuating areas are seen within the white mat ter. Cerebellum: Unremarkable. Mass effect: No evidence of midline shift. Intracranial vasculature: Atherosclerotic calcifications of the intracranial vessels. Soft tissues: Left scalp edema. Calvarium/osseous structures: No depressed skull fracture. Paranasal sinuses and mastoid air cells: Mild scattered paranasal sinus disease. Visualized orbits: Orbital contents are intact. IMPRESSION: 1. No acute intracranial process. 2. Nonspecific white matter changes, likely secondary to chronic small vessel ischemic disease. 3. Left scalp edema.
--- NOTE | 2022-12-08 12:22 | CT ---
EXAMINATION TYPE: CT angio head neck CT DLP: 494.3 mGycm, Automated exposure control for dose reduction was used. DATE OF EXAM: 12/08/2022 12:15 PM COMPARISON: . CLINICAL INDICATION:Male, 77 years old with history of Neuro deficit, acute, stroke suspected, Neuro deficit TECHNIQUE: Axially acquired helical CT angiogram of the head and neck was obtained with contrast. Axi al images are supplemented with 3D reconstructions which [facility] NASCET criteria used. Contrast used:65ml mL of Isovue 370 with IV Contrast, Oral contrast used: None. FINDINGS: CTA HEAD: No evidence of acute intracranial hemorrhage, mass effect, or midline shift. The ventricles, sulci, a nd cisterns are unremarkable. The visualized portions of the internal carotid arteries, middle cerebral arteries, anterior cerebral arteries, and posterior cerebral arteries are patent. Atherosclerosis of the bilateral carotid arter ies involving the siphon. Left origin of the posterior cerebral artery. Hypoplastic right poste rior communicating cerebral artery. The basilar and vertebral arteries are patent. CTA NECK: Right Carotid System: The common carotid and external carotid arteries are patent. There is approximately 25% stenosis at t he carotid bifurcation secondary to calcified/noncalcified plaquing. The rest of the internal carotid artery is patent. Left Carotid System: The common carotid and external carotid arteries are patent. There is approximately 25% stenosis at t he carotid bifurcation secondary to calcified/noncalcified plaquing. The rest of the internal carotid artery is patent. Vertebral arteries are patent without evidence hemodynamically significant stenosis. There is a three-vessel aortic arch. The origins of the great vessels are patent. No evidence of hemo dynamically significant stenosis. Upper thorax: Conduction leads are present. IMPRESSION: 1. No evidence of dissection of the cervical internal carotid arteries or vertebral arteries or any e vidence of significant stenosis at the carotid bifurcations. 2. No evidence of intracranial high-grade stenosis or intracranial aneurysm.
[2022-12-08] MEDS ORDERED: ASPIRIN 325 MG TAB PO STA (13:46)
--- NOTE | 2022-12-08 14:34 | XR ---
EXAMINATION TYPE: XR chest 2V DATE OF EXAM: 12/08/2022 2:17 PM COMPARISON: Chest radiographs from 08/23/2020 TECHNIQUE: XR chest 2V Frontal and lateral views of the chest. CLINICAL INDICATION:Male, 77 years old with history of altered mental status; FINDINGS: Lungs/Pleura: There is no evidence of pleural effusion, focal consolidation, or pneumothorax. Pulmonary vascularity: Unremarkable. Heart/mediastinum: Cardiomediastinal silhouette is enlarged and stable. Two lead cardiac conduction d evice overlying the left hemithorax with lead tips projecting over the right ventricle and right atri um. Musculoskeletal: No acute osseous pathology. Midline sternotomy wires are noted.Fixation hardware in the right shoulder appears intact. IMPRESSION: 1. No acute cardiopulmonary disease/process. 2. Similar cardiomegaly
--- NOTE | 2022-12-08 14:40 | P.HPIM ---
History of Present Illness H&P Date: 12/08/22 History of present illness; patient is a 77-year-old gentleman with past medical history significant for dementia presented to the ER because of change in mental status. Patient is accompanied by his grandson who is providing the history. According to the grandson, Patient Woke up This Morning and Was Acting Lethargic and Not His Usual Self. Caregivers Who Are around Noticed That He Is Lethargic. Later on They Found the Patient on the Floor. EMS Was Called and Patient Grandson Also Arrived at the Scene, Grandson Noted That the Patient Was Having a Dazed Look and His Speech Was Garbled. There was no obvious weakness of any extremity. Patient was immediately brought to the ER, initially there was concern that patient had right-sided facial droop but it resolved by the time he came to the ER. Initial lab work in the ER showed white count 8.9, hemoglobin 16.4, platelet count 174, sodium 140, potassium 4.1, BUN 14, creatinine 0.89 CTA neck showed no evidence of any dissection of the cervical internal carotid arteries or vertebral arteries or any evidence of significant stenosis at the carotid bifurcations CT head negative for acute stroke REVIEW OF SYSTEMS: CONSTITUTIONAL: No fever, no malaise, no fatigue. HEENT: No recent visual problems or hearing problems. Denied any sore throat. CARDIOVASCULAR: No chest pain, orthopnea, PND, no palpitations, no syncope. PULMONARY: No shortness of breath, no cough, no hemoptysis. GASTROINTESTINAL: No diarrhea, no nausea, no vomiting, no abdominal pain. NEUROLOGICAL: No headaches, no weakness, no numbness. HEMATOLOGICAL: Denies any bleeding or petechiae. GENITOURINARY: Denies any burning micturition, frequency, or urgency. MUSCULOSKELETAL/RHEUMATOLOGICAL: Denies any joint pain, swelling, or any muscle pain. ENDOCRINE: Denies any polyuria or polydipsia. The rest of the 14-point review of systems is negative. PHYSICAL EXAMINATION: GENERAL: The patient is alert , baseline dementia, not in any acute distress. Well developed, well nourished. HEENT: Pupils are round and equally reacting to light. EOMI. No scleral icterus. No conjunctival pallor. Normocephalic, atraumatic. No pharyngeal erythema. No thyromegaly. CARDIOVASCULAR: S1 and S2 present. No murmurs, rubs, or gallops. PULMONARY: Chest is clear to auscultation, no wheezing or crackles. ABDOMEN: Soft, nontender, nondistended, normoactive bowel sounds. No palpable organomegaly. MUSCULOSKELETAL: No joint swelling or deformity. EXTREMITIES: No cyanosis, clubbing, or pedal edema. NEUROLOGICAL: Gross neurological examination did not reveal any focal deficits. SKIN: Laceration right forearm Assessment and plan Fall Syncopal episode TIA Dementia Plan; Monitor vital signs Monitor CBC Monitor CMP Check orthostatics 2-D echo ordered Ultrasound of carotids ordered Lipid panel ordered Consult neurology PT and OT consulted DVT prophylaxis: Past Medical History Past Medical History: Coronary Artery Disease (CAD), Dementia, Hyperlipidemia, Hypertension, Syncope Additional Past Medical History / Comment(s): Recent Bradycardia and Syncope X2. Early dementia, falls, fall with right shoulder dislocation/fx upper arm with surgery. History of Any Multi-Drug Resistant Organisms: None Reported Past Surgical History: Cholecystectomy, Coronary Bypass/CABG, Hernia Repair Additional Past Surgical History / Comment(s): Left inguinal hernia repair, right arm fracture with hardware, PCI with stent 2014, 4 vessel CABG in 1999, bilateral cataract removals/lens implants. Past Anesthesia/Blood Transfusion Reactions: No Reported Reaction Past Psychological History: No Psychological Hx Reported Smoking Status: Never smoker Past Alcohol Use History: None Reported Past Drug Use History: None Reported Medications and Allergies Home Medications Medication Instructions Recorded Confirmed Type Atorvastatin [Lipitor] 80 mg PO DAILY #30 tab 04/22/15 11/01/20 Rx Aspirin EC [Ecotrin Low Dose] 81 mg PO DAILY 08/23/20 11/01/20 History Donepezil HCl [Aricept] 10 mg PO BID 08/23/20 11/01/20 History Memantine [Namenda] 10 mg PO BID 08/23/20 11/01/20 History amLODIPine [Norvasc] 2.5 mg PO DAILY #30 tab 08/24/20 11/01/20 Rx Allergies Allergy/AdvReac Type Severity Reaction Status Date / Time No Known Allergies Allergy Verified 12/08/22 10:34 Physical Exam Vitals: Vital Signs Temp Pulse Resp BP Pulse Ox 12/08/22 10:34 98 F 62 16 136/72 98 Intake and Output 12/07/22 12/08/22 12/08/22 22:59 06:59 14:59 Other: Weight 108.862 kg Results CBC & Chem 7: 12/08/22 11:04 12/08/22 11:04 Labs: Abnormal Lab Results - Last 24 Hours (Table) 12/08/22 12/08/22 12/08/22 Range/Units 10:54 11:04 11:04 Lymphocytes # 0.9 L (1.0-4.8) k/uL Glucose 127 H (74-99) mg/dL POC Glucose (mg/dL) 117 H (70-110) mg/dL Total Bilirubin 2.2 H (0.2-1.3) mg/dL Alkaline Phosphatase 145 H (38-126) U/L
--- NOTE | 2022-12-08 15:55 | US ---
EXAMINATION TYPE: US carotid duplex BILAT DATE OF EXAM: 12/08/2022 COMPARISON: 04/19/2015 CLINICAL INDICATION: Male, 77 years old with history of Syncope; confused, syncope today TECHNIQUE: Carotid duplex ultrasound examination. Indirect Doppler criteria was utilized. FINDINGS: EXAM MEASUREMENTS: RIGHT: Peak Systolic Velocity (PSV) cm/sec ----- Right CCA: 57.0 ----- Right ICA: 66.6 ----- Right ECA: 84.5 ICA/CCA ratio: 1.2 RIGHT: End Diastole cm/sec ----- Right CCA: 0.0 ----- Right ICA: 11.9 ----- Right ECA: 0.0 LEFT: Peak Systolic Velocity (PSV) cm/sec ----- Left CCA: 87.2 ----- Left ICA: 73.0 ----- Left ECA: 146.0 ICA/CCA ratio: 0.8 LEFT: End Diastole cm/sec ----- Left CCA: 7.5 ----- Left ICA: 13.9 ----- Left ECA: 7.8 VERTEBRALS (direction of flow): Right Vertebral: not seen Left Vertebral: Antegrade Rhythm: Normal [employer]OR[employer] MACHINE NOTES: Mild heterogeneous plaque with no significant stenosis IMPRESSION: Less than 50% bilateral carotid bifurcations. Criteria for Assigning % of Stenosis / Diameter reduction (Estimation based on the indirect measurements of the internal carotid artery velocities (ICA PSV). 1. Normal (no stenosis)=ICA PSV < 125 cm/s: ratio < 2.0: ICA EDV<40 cm/s. 2. Less than 50% stenosis=ICA PSV < 125 cm/s: ratio < 2.0: ICA EDV<40 cm/s. 3. 50 to 69% stenosis=ICA PSV of 125 to 230 cm/s: ration 2.0 ? 4.0: ICA EDV 40-100 cm/s. 4. Greater than 70% stenosis to near occlusion= ICA PSV > 230 cm/s: ratio > 4.0: ICA EDV > 100 cm/s. 5. Near occlusion= ICA PSV velocities may be low or undetectable: variable ratio and ICA EDV. 6. Total occlusion=unable to detect flow.
[2022-12-08] MEDS: ATORVASTATIN 80 MG TAB PO SCH (20:00)
[2022-12-08] MEDS: MEMANTINE 10 MG TAB PO SCH (20:00)
[2022-12-08] MEDS: DONEPEZIL 10 MG TAB PO SCH (20:00)
[2022-12-09 07:52] LABS: Basophils % (A) 0 %; Eosinophils # (A) 0.1 k/uL (0-0.7); Eosinophils % (A) 1 %; HCT 48.4 % (39.0-53.0); HGB 15.8 gm/dL (13.0-17.5); Lymphocytes % (A) 11 %; MCH 28.6 pg (25.0-35.0); MCHC 32.6 g/dL (31.0-37.0); MCV 87.8 fL (80.0-100.0); Mean Platelet Volume 7.5; Monocytes # (A) 0.7 k/uL (0-1.0); Monocytes % (A) 8 %; Neutrophils % (A) 80 %; Platelet Count 184 k/uL (150-450); RBC 5.51 m/uL (4.30-5.90); RDW 13.9 % (11.5-15.5); WBC 8.8 k/uL (3.8-10.6)
[2022-12-09 08:19] LABS: ALT 27 U/L (4-49); AST 27 U/L (17-59); African American GFR (CKD) >90 (>60 ml/min/1.73 sqM); Alkaline Phosphatase 151 U/L (38-126); Anion Gap 9 mmol/L; Blood Urea Nitrogen 11 mg/dL (9-20); Calcium 8.7 mg/dL (8.4-10.2); Carbon Dioxide 27 mmol/L (22-30); Chloride 103 mmol/L (98-107); Glucose 122 mg/dL (74-99); Non-African American GFR(CKD) 84 (>60 ml/min/1.73 sqM); Potassium 4.1 mmol/L (3.5-5.1); Sodium 139 mmol/L (137-145); Total Bilirubin 2.2 mg/dL (0.2-1.3); Total Protein 7.3 g/dL (6.3-8.2)
[2022-12-09] MEDS ORDERED: ASPIRIN 325 MG TAB PO SCH (09:00)
[2022-12-09] MEDS: DONEPEZIL 10 MG TAB PO SCH ×2 (09:31→20:07)
[2022-12-09] MEDS: MEMANTINE 10 MG TAB PO SCH ×2 (09:31→20:07)
[2022-12-09] MEDS: ASPIRIN 81 MG PO SCH (09:31)
[2022-12-09] MEDS: amLODIPine 2.5 MG TAB PO SCH (09:31)
[2022-12-09] MEDS ORDERED: CLOPIDOGREL 75 MG TAB PO STA (13:05)
--- NOTE | 2022-12-09 13:05 | P.CNNES ---
History of Present Illness Consult date: 12/09/22 Requesting physician: Duke Farfan Reason for Consult: Stroke/TIA History of Present Illness: Patient is a 77-year-old right-handed male with history of coronary artery disease, dementia, pacemaker came to the hospital yesterday at 10:31 AM, brought by patient's family for strokelike symptoms. Patient not able to provide any history. I spoke to patient's son, who provided with all the history. Patient lives with his son and [id number]. Patient has history of dementia for last 3 years, and someone at home and is always present to watch him. The night prior to arrival he was also doing well. Patient's son states that yesterday they saw him at 7 AM when he was up in the chair doing well. After the son left at 7 AM, the caregiver was present at home. He had breakfast with donut and water and was doing well. At around 9:30 AM, the caregiver was downstairs, when she heard a thud sound and when she went upstairs, it appears patient had apparently fallen to the ground. He had bumped his forehead and arm and was trying to get out of the floor, was pale. He was noted to have slurred speech, could not get up, could not walk. This was an acute change in his condition, and there was right facial droop noted. At baseline patient walks without any assistive device. He does have a walker at home but does not use it. He speaks well otherwise. No previous history of lazy eye. Vital signs on arrival blood pressure 136/72, pulse rate 62 temperature 98.0. EKG shows sinus rhythm with sinus arrhythmia. CT head showed no acute intracranial process. Nonspecific white matter changes, likely secondary to chronic small vessel ischemic disease. Left scalp edema. Chest x-ray showed no acute process. Similar cardiomegaly. Patient has history of cardiac stent put in 1999. He also used to have vasovagal syncope on looking at the blood or with any pain. Patient had undergone pacemaker placement in 2014. Patient had a syncopal spell in July 2021, and he broke his arm. Since then he has not had any more syncopal spells. He has been doing very well with no passing out. Home medications include aspirin 81 mg, Namenda 10 mg twice a day, donepezil 10 mg twice a day, amlodipine 2.5 mg and Lipitor 80 mg daily. Patient has never smoked, used to drink alcohol heavily for many years, quit 20 years ago. Review of Systems Constitutional: Denies chills, Denies fever Eyes: denies blurred vision, denies diplopia, denies pain Ears: bilateral: decreased hearing, deny: ear discharge, earache Ears, nose, mouth and throat: Denies headache, Denies sore throat Cardiovascular: Denies chest pain, Denies shortness of breath Respiratory: Denies cough, Denies excessive sputum Gastrointestinal: Denies abdominal pain, Denies diarrhea, Denies nausea, Denies vomiting Musculoskeletal: Denies low back pain, Denies myalgias, Denies neck pain Integumentary: Denies pruritus, Denies rash Neurological: Reports as per HPI Psychiatric: Reports memory loss, Denies anxiety, Denies depression Past Medical History Past Medical History: Coronary Artery Disease (CAD), Dementia, Hyperlipidemia, Hypertension, Syncope Additional Past Medical History / Comment(s): Recent Bradycardia and Syncope X2. Early dementia, falls, fall with right shoulder dislocation/fx upper arm with surgery. History of Any Multi-Drug Resistant Organisms: None Reported Past Surgical History: Cholecystectomy, Coronary Bypass/CABG, Hernia Repair, Pacemaker Additional Past Surgical History / Comment(s): Left inguinal hernia repair, right arm fracture with hardware, PCI with stent 2014, 4 vessel CABG in 1999, bilateral cataract removals/lens implants. Past Anesthesia/Blood Transfusion Reactions: No Reported Reaction Type of Cardiac Device: Permanent Pacemaker Device Placement Date:: Past Psychological History: No Psychological Hx Reported Additional Psychological History / Comment(s): Early Dementia. Smoking Status: Never smoker Past Alcohol Use History: None Reported Past Drug Use History: None Reported Medications and Allergies Home Medications Medication Instructions Recorded Confirmed Type Aspirin EC [Ecotrin Low Dose] 81 mg PO DAILY 08/23/20 12/08/22 History Donepezil HCl [Aricept] 10 mg PO BID 08/23/20 12/08/22 History Memantine [Namenda] 10 mg PO BID 08/23/20 12/08/22 History amLODIPine [Norvasc] 2.5 mg PO DAILY #30 tab 08/24/20 12/08/22 Rx Atorvastatin [Lipitor] 80 mg PO HS 12/08/22 12/08/22 History Allergies Allergy/AdvReac Type Severity Reaction Status Date / Time No Known Allergies Allergy Verified 12/08/22 15:13 Physical Examination - Vital Signs Vital Signs: Vital Signs Temp Pulse Resp BP Pulse Ox 12/09/22 09:29 94 L 12/09/22 08:00 97.8 F 70 17 138/72 97 12/09/22 04:00 97.6 F 64 14 145/76 96 12/09/22 01:59 57 L 16 12/09/22 00:00 97.6 F 57 L 16 156/85 98 12/08/22 20:00 97.8 F 57 L 16 146/79 97 Intake and Output 12/08/22 12/09/22 12/09/22 22:59 06:59 14:59 Intake Total 180 430 Output Total 300 Balance 180 130 Intake: IV 10 Invasive Line 1 10 Oral 180 420 Output: Urine 300 Other: Voiding Method External Catheter External Catheter External Catheter # Voids 1 4 # Bowel Movements 1 Patient is an elderly male, in no acute distress. Patient is alert awake oriented, not well oriented related to his dementia. He could not tell the current month or the year. He states that he lives in [facility], although he lives in [place] it appears. He knows his name, but does not know his age or date of . Patient states that he lives in his mom and dad house. He believes that he is in his house at this time. Speech is mild to moderately dysarthric. He was able to name knuckles, and ear but not the lobe. Patient has some problem with repetition although does it with mistakes. Some paraphasic errors were noticed. Attention, concentration and fund of knowledge is very limited. On cranial nerve examination, pupils are small, 3 mm, equal, round and reacting to light, visual traylor are full on confrontation, with no neglect on double simultaneous stimulation. Extraocular muscles reveal that patient has disconjugate primary gaze. His right eye is adducted in the primary gaze. Patient appears to have moderate left lateral rectus palsy, slightly more than the right. The right eye does abduct all the way to the right, but then comes t o the primary gaze with partial weakness. He only saw double vision once. Patient has prominent nystagmus bilateral end gaze. Patient has right facial droop. His tongue protrudes the midline. Slight drooling from the left. Palatal elevation and sensation normal, hearing is moderately decreased and shoulder shrug normal, facial sensation normal. On muscle strength testing, there is mild right pronator drift and the strength is normal in arms and legs distally and proximally, except right hip flexion which is 5-as compared to the right. Patient has right leg drift as well. Deep tendon reflexes are (right/left) biceps 2/2, brachioradialis 1+/1+, knees 2+/3, ankles 1/1 and plantar is up on the right, down left. Sensory to touch is equal with no neglect on double simultaneous stimulation. Cerebellar functions showed mild ataxia for [id number] testing on the left side but not on the right. No dysdiadochokinesia. No ataxia for [id number] testing on either side. Tone and bulk of muscles normal. Gait deferred.. On general examination, there is no carotid bruit or murmur, S1-S2 audible. Chest is clear on consultation. Abdomen is soft nontender. No organomegaly, bowel sounds present. Peripheral pulses are present. No edema. Results - Laboratory Findings CBC and BMP: 12/09/22 07:11 12/09/22 07:11 Abnormal Lab Findings: Abnormal Labs 12/08/22 12/08/22 12/08/22 10:54 11:04 11:04 Lymphocytes # 0.9 L Glucose 127 H POC Glucose (mg/dL) 117 H Total Bilirubin 2.2 H Alkaline Phosphatase 145 H 12/09/22 07:11 Lymphocytes # Glucose 122 H POC Glucose (mg/dL) Total Bilirubin 2.2 H Alkaline Phosphatase 151 H Assessment and Plan Assessment: * Probable acute ischemic stroke manifesting with disconjugate gaze, slurred speech, mild right hemiparesis and left arm ataxia. Symptoms suggestive of possible brain stem location with crossed findings. * Hypertension * Coronary artery disease * Dementia, at least moderate degree * Past history of alcoholism * Pacemaker * Long-standing history of vasovagal syncope from sight of blood. Plan: * Patient has symptoms of acute CVA. Patient did not receive TPA. * Patient was on aspirin 81 mg daily. We will start him on Plavix with loading dose of 300 mg 1, followed by Plavix 75 mg daily. * Fasting a.m. lipid panel, hemoglobin A1c * 2-D echo with bubble study to rule out PFO * CTA of head and neck revealed no evidence of dissection of the cervical internal carotid arteries or vertebral arteries or any evidence of significant stenosis in the carotid bifurcation. No evidence of intracranial high-grade stenosis or intracranial aneurysm. * Carotid Doppler revealed less than 50% stenosis bilateral carotid bifurcation. Antegrade flow in the left vertebral artery, and right vertebral artery not seen. * Patient cannot have MRI of the brain because of pacemaker. Consider repeating CT of head in a couple days to evaluate for any evolving stroke. * PT OT evaluate * Fall precautions * EEG for recurrent syncopal spells. * Ophthalmology consultation for disconjugate gaze * DVT prophylaxis: Heparin 5000 Units subcutaneously twice a day. * Dr. Mata Camejo Will resume neurology service in the morning. Thank you for the consult. Time with Patient: Greater than 30
[2022-12-09 13:06] LABS: Chol/HDL Ratio 2.91 Ratio; LDL Cholesterol,Calculated 45.8 mg/dL (0.0-131.0)
--- NOTE | 2022-12-09 13:44 | P.PN ---
Subjective Progress Note Date: 12/09/22 patient is a 77-year-old gentleman with past medical history significant for dementia presented to the ER because of change in mental status. Patient is accompanied by his grandson who is providing the history. According to the grandson, Patient Woke up This Morning and Was Acting Lethargic and Not His Usual Self. Caregivers Who Are around Noticed That He Is Lethargic. Later on They Found the Patient on the Floor. EMS Was Called and Patient Grandson Also Arrived at the Scene, Grandson Noted That the Patient Was Having a Dazed Look and His Speech Was Garbled. There was no obvious weakness of any extremity. Patient was immediately brought to the ER, initially there was concern that patient had right-sided facial droop but it resolved by the time he came to the ER. Initial lab work in the ER showed white count 8.9, hemoglobin 16.4, platelet count 174, sodium 140, potassium 4.1, BUN 14, creatinine 0.89 CTA neck showed no evidence of any dissection of the cervical internal carotid arteries or vertebral arteries or any evidence of significant stenosis at the carotid bifurcations CT head negative for acute stroke 12/09. Patient seen and examined. Patient history of dementia. Currently not in acute distress. No focal motor or sensory deficit REVIEW OF SYSTEMS: CONSTITUTIONAL: No fever, no malaise,. CARDIOVASCULAR: No chest pain, no palpitations, no syncope. PULMONARY: No shortness of breath, no cough, GASTROINTESTINAL: No diarrhea, no nausea, no vomiting, no abdominal pain. NEUROLOGICAL: No headaches, no weakness, PHYSICAL EXAMINATION: GENERAL: The patient is alert, baseline dementia, not in any acute distress. Well developed, well nourished. HEENT: Pupils are round and equally reacting to light. EOMI. No scleral icterus. No conjunctival pallor. Normocephalic, atraumatic. No pharyngeal erythema. No thyromegaly. CARDIOVASCULAR: S1 and S2 present. No murmurs, rubs, or gallops. PULMONARY: Chest is clear to auscultation, no wheezing or crackles. ABDOMEN: Soft, nontender, nondistended, normoactive bowel sounds. No palpable organomegaly. MUSCULOSKELETAL: No joint swelling or deformity. EXTREMITIES: No cyanosis, clubbing, or pedal edema. NEUROLOGICAL: Gross neurological examination did not reveal any focal deficits. SKIN: No rashes. Assessment and plan Fall Syncopal episode Acute CVA Dementia Monitor vital signs Monitor CBC Monitor CMP Continue telemetry monitoring Continue neuro checks Follow-up on 2-D echo Continue aspirin, neurology added Plavix Continue Lipitor CTA of head and neck revealed no evidence of dissection of the cervical internal carotid arteries or vertebral arteries or any evidence of significant stenosis in the carotid bifurcation. No evidence of intracranial high-grade stenosis or intracranial aneurysm. Carotid Doppler revealed less than 50% stenosis bilateral carotid bifurcation. Antegrade flow in the left vertebral artery, and right vertebral artery not seen. Patient cannot have MRI of the brain because of pacemaker. Consider repeating CT of head in a couple days to evaluate for any evolving stroke. Follow-up on neurology recommendation Objective - Vital Signs Vital signs: Vital Signs Temp 98.4 F 12/09/22 11:50 Pulse 56 L 12/09/22 11:50 Resp 17 12/09/22 11:50 BP 129/62 12/09/22 11:50 Pulse Ox 97 12/09/22 11:50 FiO2 Intake & Output 12/08/22 12/09/22 12/09/22 18:59 06:59 18:59 Intake Total 180 430 Output Total 300 Balance 180 130 Weight 108.862 kg Intake: IV 10 Invasive Line 1 10 Oral 180 420 Output: Urine 300 Other: Voiding Method External Catheter External Catheter External Catheter # Voids 1 4 # Bowel Movements 1 1 - Labs CBC & Chem 7: 12/09/22 07:11 12/09/22 07:11 Labs: Abnormal Lab Results - Last 24 Hours (Table) 12/09/22 Range/Units 07:11 Glucose 122 H (74-99) mg/dL Total Bilirubin 2.2 H (0.2-1.3) mg/dL Alkaline Phosphatase 151 H (38-126) U/L HDL Cholesterol 36.80 L (40.00-60.00) mg/dL
[2022-12-09] MEDS: HEPARIN SODIUM,PORCINE/PF 5,000 UNIT/0.5 ML SYRINGE SQ SCH ×2 (15:51→23:44)
[2022-12-09] MEDS: ATORVASTATIN 80 MG TAB PO SCH (20:07)
[2022-12-10] MEDS: MEMANTINE 10 MG TAB PO SCH ×2 (08:54→20:09)
[2022-12-10] MEDS: amLODIPine 2.5 MG TAB PO SCH (08:54)
[2022-12-10] MEDS: ASPIRIN 81 MG PO SCH (08:54)
[2022-12-10] MEDS: DONEPEZIL 10 MG TAB PO SCH ×2 (08:54→20:09)
[2022-12-10] MEDS: CLOPIDOGREL 75 MG TAB PO SCH (08:54)
[2022-12-10] MEDS: HEPARIN SODIUM,PORCINE/PF 5,000 UNIT/0.5 ML SYRINGE SQ SCH ×3 (08:54→23:45)
--- NOTE | 2022-12-10 13:03 | CA ---
Transthoracic Echo Report Name: Aaron Ricks Age: 77 Gender: M : 1945 Exam Date: 12/10/2022 08:31 Exam Location: [facility] Ht (in): 68 Wt (lb): 240 Ordering Physician: Tanner Gerardo MD Attending/Referring Phys: Film Examiner Jesenia Malone [facility] [place] Procedure CPT: Indications: stroke Cardiac Hx: Technical Quality: Technically difficult study Contrast 1: Lumason Total Dose (mL): 5 Contrast 2: Total Dose (mL): MEASUREMENTS (Male / Female) Normal Values 2D ECHO LV Diastolic Diameter PLAX 4.6 cm 4.2 - 5.9 / 3.9 - 5.3 cm LV Systolic Diameter PLAX 3.1 cm IVS Diastolic Thickness 0.9 cm 0.6 - 1.0 / 0.6 - 0.9 cm LVPW Diastolic Thickness 0.9 cm 0.6 - 1.0 / 0.6 - 0.9 cm LV Relative Wall Thickness 0.4 RV Internal Dim ED PLAX 3.2 cm M-MODE Aortic Root Diameter MM 3.2 cm LA Systolic Diameter MM 4.1 cm LA Ao Ratio MM 1.3 AV Cusp Separation MM 2.1 cm DOPPLER AV Peak Velocity 132.7 cm/s AV Peak Gradient 7.0 mmHg AV Mean Velocity 90.9 cm/s AV Mean Gradient 3.8 mmHg AV Velocity Time Integral 23.9 cm LVOT Peak Velocity 96.5 cm/s LVOT Peak Gradient 3.7 mmHg LVOT Velocity Time Integral 18.4 cm Mitral E Point Velocity 45.1 cm/s Mitral A Point Velocity 73.4 cm/s Mitral E to A Ratio 0.6 MV Deceleration Time 322.3 ms LV E' Lateral Velocity 13.2 cm/s Mitral E to LV E' Lateral Ratio 3.4 LV E' Septal Velocity 6.5 cm/s Mitral E to LV E' Septal Ratio 7.0 TR Peak Velocity 206.3 cm/s TR Peak Gradient 17.0 mmHg Right Ventricular Systolic Press 22.2 mmHg FINDINGS Left Ventricle Normal Left ventricular size, wall thickness, systolic function with no obvious regional wall motion abnormalities. Left ventricular ejection fraction is estimated at 55-60%. Right Ventricle Moderate right ventricular dilatation. Mildly reduced right ventricular global systolic function. Right Atrium Mild right atrial dilatation. Left Atrium Normal left atrial size. Mitral Valve Structurally normal mitral valve. Trace mitral regurgitation. Aortic Valve Trileaflet aortic valve. No aortic regurgitation. No aortic stenosis. Tricuspid Valve Structurally normal tricuspid valve. Mild tricuspid regurgitation. Pulmonic Valve Structurally normal pulmonic valve. Mild pulmonic regurgitation. Pericardium Normal pericardium. Aorta Normal size aortic root and proximal ascending aorta. CONCLUSIONS Left ventricular ejection fraction 55-60% Normal left ventricular thickness Mild right atrial enlargement Mildly dilated right ventricle with mildly reduced right ventricular function Mild tricuspid regurgitation No pericardial effusion Previewed by: Dr. Shawn Hunter DO (Electronically Signed) Final Date: 10 December 2022 13:02
--- NOTE | 2022-12-10 14:40 | P.PN ---
Subjective Progress Note Date: 12/10/22 patient is a 77-year-old gentleman with past medical history significant for dementia presented to the ER because of change in mental status. Patient is accompanied by his grandson who is providing the history. According to the grandson, Patient Woke up This Morning and Was Acting Lethargic and Not His Usual Self. Caregivers Who Are around Noticed That He Is Lethargic. Later on They Found the Patient on the Floor. EMS Was Called and Patient Grandson Also Arrived at the Scene, Grandson Noted That the Patient Was Having a Dazed Look and His Speech Was Garbled. There was no obvious weakness of any extremity. Patient was immediately brought to the ER, initially there was concern that patient had right-sided facial droop but it resolved by the time he came to the ER. Initial lab work in the ER showed white count 8.9, hemoglobin 16.4, platelet count 174, sodium 140, potassium 4.1, BUN 14, creatinine 0.89 CTA neck showed no evidence of any dissection of the cervical internal carotid arteries or vertebral arteries or any evidence of significant stenosis at the carotid bifurcations CT head negative for acute stroke 12/09. Patient seen and examined. Patient history of dementia. Currently not in acute distress. No focal motor or sensory deficit 12/10. Patient seen and examined. PT and OT evaluated the patient, recommended discharging home with homecare REVIEW OF SYSTEMS: CONSTITUTIONAL: No fever, no malaise,. CARDIOVASCULAR: No chest pain, no palpitations, no syncope. PULMONARY: No shortness of breath, no cough, GASTROINTESTINAL: No diarrhea, no nausea, no vomiting, no abdominal pain. NEUROLOGICAL: No headaches, no weakness, PHYSICAL EXAMINATION: GENERAL: The patient is alert, baseline dementia, not in any acute distress. Well developed, well nourished. HEENT: Pupils are round and equally reacting to light. EOMI. No scleral icterus. No conjunctival pallor. Normocephalic, atraumatic. No pharyngeal erythema. No thyromegaly. CARDIOVASCULAR: S1 and S2 present. No murmurs, rubs, or gallops. PULMONARY: Chest is clear to auscultation, no wheezing or crackles. ABDOMEN: Soft, nontender, nondistended, normoactive bowel sounds. No palpable organomegaly. MUSCULOSKELETAL: No joint swelling or deformity. EXTREMITIES: No cyanosis, clubbing, or pedal edema. NEUROLOGICAL: Gross neurological examination did not reveal any focal deficits. SKIN: No rashes. Assessment and plan Fall Syncopal episode Acute CVA Dementia Monitor vital signs Monitor CBC Monitor CMP Continue telemetry monitoring Continue neuro checks Follow-up on 2-D echo, showed normal LVEF of 55-60%, normal left ventricle thickness, mild right atrial enlargement Continue aspirin, Plavix Continue Lipitor CTA of head and neck revealed no evidence of dissection of the cervical internal carotid arteries or vertebral arteries or any evidence of significant stenosis in the carotid bifurcation. No evidence of intracranial high-grade stenosis or intracranial aneurysm. Carotid Doppler revealed less than 50% stenosis bilateral carotid bifurcation. Antegrade flow in the left vertebral artery, and right vertebral artery not seen. Patient cannot have MRI of the brain because of pacemaker. Consider repeating CT of head in a couple days to evaluate for any evolving stroke. EEG pending Follow-up on PT and OT recommendations Follow-up on neurology recommendation Objective - Vital Signs Vital signs: Vital Signs Temp 98 F 12/10/22 08:50 Pulse 72 12/10/22 11:50 Resp 17 12/10/22 11:50 BP 150/80 12/10/22 11:50 Pulse Ox 96 12/10/22 11:50 FiO2 Intake & Output 12/09/22 12/10/22 12/10/22 18:59 06:59 18:59 Intake Total 440 Output Total 300 750 Balance 140 -750 Intake: IV 20 Invasive Line 1 20 Oral 420 Output: Urine 300 750 Other: Voiding Method External Catheter Toilet Toilet Urinal Urinal # Voids 1 # Bowel Movements 1 - Labs CBC & Chem 7: 12/09/22 07:11 12/09/22 07:11
--- NOTE | 2022-12-10 15:26 | P.PN ---
Subjective Progress Note Date: 12/10/22 I am seeing the patient for the first time during this admission. Please refer to Dr. Hinton's note for further details. Upon seeing the patient he states he feels about the same. Denies of any new neurological issues. There is seems to be considered for acute brainstem stroke and MRI cannot be obtained because of pacemaker. Objective - Vital Signs Vital signs: Vital Signs Temp 98 F 12/10/22 08:50 Pulse 72 12/10/22 11:50 Resp 17 12/10/22 11:50 BP 150/80 12/10/22 11:50 Pulse Ox 96 12/10/22 11:50 FiO2 Intake & Output 12/09/22 12/10/22 12/10/22 18:59 06:59 18:59 Intake Total 440 Output Total 300 750 Balance 140 -750 Intake: IV 20 Invasive Line 1 20 Oral 420 Output: Urine 300 750 Other: Voiding Method External Catheter Toilet Toilet Urinal Urinal # Voids 1 # Bowel Movements 1 - Exam Neuro: Patient is awake alert oriented to self only. He is able to follow simple commands. No aphasia The pupils are round equal and reactive to light. Primary gaze is disconjugate. Patient has right lateral rectus palsy. He has a mild right nasolabial flattening. Strength is lifting old surgeries above gravity and no appreciable of focality. - Labs CBC & Chem 7: 12/09/22 07:11 12/09/22 07:11 Assessment and Plan Assessment: * Probable acute ischemic stroke manifesting with disconjugate gaze, slurred speech, mild right hemiparesis and left arm ataxia. Symptoms suggestive of possible brain stem location with crossed findings. * Hypertension * Coronary artery disease * Dementia, at least moderate degree * Past history of alcoholism * Pacemaker * Long-standing history of vasovagal syncope from sight of blood. Plan: * Patient has symptoms of acute CVA. Patient did not receive TPA. * Patient was on aspirin 81 mg daily. We will start him on Plavix with loading dose of 300 mg 1, followed by Plavix 75 mg daily. * Fasting a.m. lipid panel, hemoglobin A1c * 2-D echo with bubble study to rule out PFO * CTA of head and neck revealed no evidence of dissection of the cervical internal carotid arteries or vertebral arteries or any evidence of significant stenosis in the carotid bifurcation. No evidence of intracranial high-grade stenosis or intracranial aneurysm. * Carotid Doppler revealed less than 50% stenosis bilateral carotid bifurcation. Antegrade flow in the left vertebral artery, and right vertebral artery not seen. * Patient cannot have MRI of the brain because of pacemaker. Will get a repeat CT of head tomorrow to evaluate for any evolving stroke. * PT OT evaluate * Fall precautions * EEG for recurrent syncopal spells. * Ophthalmology consultation for disconjugate gaze * DVT prophylaxis: Heparin 5000 Units subcutaneously twice a day. The plan is discussed with patient and his nurse. Time with Patient: Less than 30
[2022-12-10] MEDS: ATORVASTATIN 80 MG TAB PO SCH (20:09)
--- NOTE | 2022-12-10 21:13 | EEG ---
ELECTROENCEPHALOGRAM REPORT CLINICAL HISTORY: This is a 77-year-old gentleman with altered mental status with a syncopal episode. The EEG is obtained to evaluate for seizure epileptiform activity. RELEVANT MEDICATION: The patient is not on any antiepileptic drugs. DESCRIPTION: Wakefulness is only obtained. During awake state, the posterior-dominant rhythm consists of [id number] voltage of 8-8.5 hertz activity that is well modulated and well sustained. There is no physiological stage 2 sleep architecture. There is no focal slowing. Interictal and ictal is none. ACTIVATION PROCEDURE: Photic stimulation did not evoke a posterior driving response. There is no abnormality during the photic stimulation. Hyperventilation is not performed. CLINICAL INTERPRETATION: This is a normal routine EEG. There is no focal slowing, epileptiform discharge, or seizure on the EEG. A normal routine EEG. There is no underlying epilepsy. Clinical correlation is recommended. LEV / MARLINE: [id number] / [id number]
--- NOTE | 2022-12-10 23:37 | CONS ---
CONSULTATION Ophthalmology Consult. CHIEF COMPLAINT: Mental status changes. HISTORY OF PRESENT ILLNESS: The patient is a 77-year-old male, who was presenting to the hospital with stroke-like symptoms. The patient was interviewed and did not provide valuable history. According to the team caring for the patient, the patient was admitted due to changes of mental status including drooping, weakness, potential strabismus, slurring of speech. The patient's baseline is difficult to evaluate as history is difficult to assess. On questioning, the patient reports that he has not noticed any visual complaints. REVIEW OF SYSTEMS: Difficult to evaluate; however, the patient denies fever, headache, chills, double vision, muscle pains, rash, nausea, vomiting, dizziness. MEDICAL HISTORY: History of coronary artery disease, dementia, hyperlipidemia, hypertension, syncope. PAST SURGICAL HISTORY: No ocular surgical history reported. The patient reports cholecystectomy, coronary bypass (CABG), hernia repair, pacemaker, cataract surgery. FAMILY HISTORY: Noncontributory. SOCIAL HISTORY: The patient denies smoking or drug use. MEDICATIONS: 1. Aspirin 81 mg daily. 2. Aricept 10 mg b.i.d. 3. Memantine 10 mg p.o. b.i.d. 4. Norvasc. 5. Lipitor. ALLERGIES: No known drug allergies. DIAGNOSTIC STUDIES: Review of laboratory findings reveals CTA showing no evidence of dissection of the cervical internal carotid arteries, no evidence of intracranial stenosis or aneurysm, no acute intracranial process, and nonspecific white matter changes likely secondary to chronic small-vessel disease. PHYSICAL EXAMINATION: OPHTHALMIC: Pupils are equal, round, and reactive to light and accommodation. There is no apparent pupillary defect. The patient has a right esotropia in primary position. Cover testing reveals the patient can alternate fixation but prefers fixation with the left eye. Extraocular movement reveals a moderate abduction deficit in the right eye. With intermittent nystagmus bilaterally. Extraocular movements in the left eye are full. Confrontation visual field is difficult due to the patient's mental status; however, appears to be full. Visual acuity is 20/50 without correction at near in the right eye and 20/30 without correction at near in the left eye. Intra-ocular pressure is 19 bilaterally. The lids are within normal limits and there is no ptosis bilaterally. Anterior examination reveals a normal anterior chamber in both eyes and a clear lens bilaterally. Retina examination is difficult in this setting; however, no significant abnormalities are noted. There is a slight facial droop on the right side. ASSESSMENT AND PLAN: 1. Abduction deficit, right eye. There appears to be a component of a 6th nerve palsy in the right eye. The patient is able to bring the right eye just past midline; however, does not abduct beyond that. This is not a complete palsy, but possibly more of a weakness in the 6th nerve. The patient has what appears to be a 7th nerve palsy as well. The 7th nerve palsy is ipsilateral, which may signify a brainstem origin. There may be an ischemic or inflammatory cause in the posterior fossa to consider. The patient does not have significant contralateral weakness however on limited exam. 2. Nystagmus, bilateral. The patient exhibits nystagmus during extraocular movement testing. This diagnosis can be suggestive of an ischemic stroke in this setting. This along with the findings above and the overall neurologic exam suggests a possible ischemic stroke. Additional imaging and neurologic testing would be recommended to evaluate for brainstem syndromes such as [place] syndrome or similar posterior fossa etiology. However, it is difficult to evaluate or localize the possible lesion with my limited exam. 3. There is also possibility that some of the abnormalities noted on exam are long- standing. It is unclear due to the patient's difficulty giving history how long the symptoms have existed and if the patient has a chronic strabismus or if this is an acute process. 4. Regardless, I would recommend additional outpatient followup with me within the next several weeks in the office. Thank you for allowing me to participate in this patient's care. MMLEOPOLDO / IJN: [id number] /
[2022-12-11] MEDS: MEMANTINE 10 MG TAB PO SCH (08:35)
[2022-12-11] MEDS: HEPARIN SODIUM,PORCINE/PF 5,000 UNIT/0.5 ML SYRINGE SQ SCH (08:35)
[2022-12-11] MEDS: ASPIRIN 81 MG PO SCH (08:36)
[2022-12-11] MEDS: DONEPEZIL 10 MG TAB PO SCH (08:36)
[2022-12-11] MEDS: amLODIPine 2.5 MG TAB PO SCH (08:36)
[2022-12-11] MEDS: CLOPIDOGREL 75 MG TAB PO SCH (08:36)
[2022-12-11 09:19] VITALS: TEMP 98.1
--- NOTE | 2022-12-11 09:28 | CT ---
EXAMINATION TYPE: CT brain wo con CT DLP: 1094.1 mGycm, Automated exposure control for dose reduction was used. DATE OF EXAM: 12/11/2022 9:21 AM COMPARISON: 12/08/2022. CLINICAL INDICATION:Male, 77 years old with history of stroke. disconjugate gaze, facial droop right , weakness, ams TECHNIQUE: Brain: Axial CT images of the brain were obtained with coronal and sagittal reformats created and rev iewed. Contrast used: None. Oral contrast used: None. FINDINGS: Brain: Extra-axial spaces: No abnormal extra-axial fluid collections. Ventricular system: Dilatation in proportion to cerebral atrophy. Cerebral parenchyma: Cerebral atrophy. No acute intraparenchymal hemorrhage or mass effect. The potter -white junction is well differentiated. Scattered hypoattenuating areas are seen within the white mat ter. Cerebellum: Cerebellar atrophy Mass effect: No evidence of midline shift. Intracranial vasculature: Atherosclerotic calcifications of the intracranial vessels. Soft tissues: Left frontal soft tissue edema. Calvarium/osseous structures: No depressed skull fracture. Paranasal sinuses and mastoid air cells: Mild scattered paranasal sinus disease. Visualized orbits: Orbital contents are intact. IMPRESSION: 1. No acute intracranial process. Consider MRI for more sensitivity for acute/subacute CVA. 2. Diffuse Nonspecific white matter changes, likely secondary to chronic small vessel ischemic disea se. 3. Left frontal scalp edema
[2022-12-11 12:11] VITALS: BP 156/83; PULSE 72; RESP 18
--- NOTE | 2022-12-11 13:03 | P.DS ---
Providers Date of admission: 12/08/22 13:46 Expected date of discharge: 12/11/22 Attending physician: Tanner Gerardo MD Consults: 12/08/22 13:47 Consult Physician Routine Consulting Provider: Siva Hinton Consult Reason/Comments: TIA Do you want consulting provider notified?: Yes 12/09/22 13:07 Consult Physician Urgent Consulting Provider: Grant Slade Consult Reason/Comments: CVA, disconjugate gaze Do you want consulting provider notified?: Yes Primary care physician: Andreas Torres Hospital Course: Discharge diagnoses; Fall Syncopal episode Acute CVA Dementia Hospital course; patient is a 77-year-old gentleman with past medical history significant for dementia presented to the ER because of change in mental status. Patient is accompanied by his grandson who is providing the history. According to the grandson, Patient Woke up This Morning and Was Acting Lethargic and Not His Usual Self. Caregivers Who Are around Noticed That He Is Lethargic. Later on They Found the Patient on the Floor. EMS Was Called and Patient Grandson Also Arrived at the Scene, Grandson Noted That the Patient Was Having a Dazed Look and His Speech Was Garbled. There was no obvious weakness of any extremity. Patient was immediately brought to the ER, initially there was concern that patient had right-sided facial droop but it resolved by the time he came to the ER. Initial lab work in the ER showed white count 8.9, hemoglobin 16.4, platelet count 174, sodium 140, potassium 4.1, BUN 14, creatinine 0.89 CTA neck showed no evidence of any dissection of the cervical internal carotid arteries or vertebral arteries or any evidence of significant stenosis at the carotid bifurcations CT head negative for acute stroke 12/09. Patient seen and examined. Patient history of dementia. Currently not in acute distress. No focal motor or sensory deficit 12/10. Patient seen and examined. PT and OT evaluated the patient, recommended discharging home with homecare 12/11. Patient seen and examined. Patient repeat CT head without contrast done this morning is again negative for any acute stroke. Neurology cleared the patient for discharge PHYSICAL EXAMINATION: GENERAL: The patient is alert and oriented x3, not in any acute distress. Well developed, well nourished. HEENT: Pupils are round and equally reacting to light. EOMI. No scleral icterus. No conjunctival pallor. Normocephalic, atraumatic. No pharyngeal erythema. No thyromegaly. CARDIOVASCULAR: S1 and S2 present. No murmurs, rubs, or gallops. PULMONARY: Chest is clear to auscultation, no wheezing or crackles. ABDOMEN: Soft, nontender, nondistended, normoactive bowel sounds. No palpable organomegaly. MUSCULOSKELETAL: No joint swelling or deformity. EXTREMITIES: No cyanosis, clubbing, or pedal edema. NEUROLOGICAL: Gross neurological examination did not reveal any focal deficits. SKIN: No rashes. Patient Condition at Discharge: Stable Plan - Discharge Summary New Discharge Prescriptions: New Clopidogrel [Plavix] 75 mg PO DAILY #30 tab Continue Aspirin EC [Ecotrin Low Dose] 81 mg PO DAILY Memantine [Namenda] 10 mg PO BID Donepezil HCl [Aricept] 10 mg PO BID amLODIPine [Norvasc] 2.5 mg PO DAILY #30 tab Atorvastatin [Lipitor] 80 mg PO HS Discharge Medication List Aspirin EC [Ecotrin Low Dose] 81 mg PO DAILY 08/23/20 [History] Donepezil HCl [Aricept] 10 mg PO BID 08/23/20 [History] Memantine [Namenda] 10 mg PO BID 08/23/20 [History] amLODIPine [Norvasc] 2.5 mg PO DAILY #30 tab 08/24/20 [Rx] Atorvastatin [Lipitor] 80 mg PO HS 12/08/22 [History] Clopidogrel [Plavix] 75 mg PO DAILY #30 tab 12/10/22 [Rx] Follow up Appointment(s)/Referral(s): Brian Johns MD [Primary Care Provider] - 1-2 days [facility], [NON-STAFF] - 1 Week Discharge Disposition: HOME WITH HOME HEALTH SERVICES
--- NOTE | 2022-12-11 13:10 | P.PN ---
Subjective Progress Note Date: 12/11/22 The patient is seen at bedside and feels about the same. Denies any new neurological issues. Objective - Vital Signs Vital signs: Vital Signs Temp 98.1 F 12/11/22 08:35 Pulse 72 12/11/22 11:45 Resp 18 12/11/22 11:45 BP 156/83 12/11/22 11:45 Pulse Ox 96 12/11/22 11:45 FiO2 Intake & Output 12/10/22 12/11/22 12/11/22 18:59 06:59 18:59 Other: Voiding Method Toilet Toilet Toilet Urinal Urinal Urinal # Voids 1 1 2 - Exam Neuro: Patient is awake alert oriented to self. With options he was able to state he was in the hospital. He is able to follow simple commands. No aphasia The pupils are round equal and reactive to light. Primary gaze is disconjugate. Patient has bilateral lateral rectus palsy. He has a mild right nasolabial flattening. Strength is 5/5 throughout. Sensory: Mary to touch throughout. Cerebellar: finger to nose appears normal bilaterally. - Labs CBC & Chem 7: 12/09/22 07:11 12/09/22 07:11 Assessment and Plan Assessment: * Probable acute ischemic stroke manifesting with disconjugate gaze, slurred speech, mild right hemiparesis and left arm ataxia. Symptoms suggestive of possible brain stem location with crossed findings. Recent examination has bilateral 6th partial palsy with right facial droop. Again felt probable acute ischemia. * Hypertension * Coronary artery disease * Dementia, at least moderate degree * Past history of alcoholism * Pacemaker * Long-standing history of vasovagal syncope from sight of blood. Plan: * Patient has symptoms of acute CVA. Patient did not receive TPA. * Patient was on aspirin 81 mg daily, Plavix 75 mg daily. * Fasting a.m. lipid panel: Triglyceride 12, cholesterol 107, LDLs were 5 and HDL 36. Hemoglobin A1c is 5.8. * 2-D echo: Reported as left ventricle ejection fraction 55-60%. Mild right atrial dilation. Normal left atrial size. * CTA of head and neck revealed no evidence of dissection of the cervical internal carotid arteries or vertebral arteries or any evidence of significant stenosis in the carotid bifurcation. No evidence of intracranial high-grade stenosis or intracranial aneurysm. * Carotid Doppler revealed less than 50% stenosis bilateral carotid bifurcation. Antegrade flow in the left vertebral artery, and right vertebral artery not seen. * Patient cannot have MRI of the brain because of pacemaker. * Repeat CT head today shows no acute intracranial process. I personally reviewed the CT and I agree that there is no acute subacute ischemia. CT of the head is not the best for brainstem posterior circulation region * PT OT evaluate * Fall precautions * EEG for recurrent syncopal spells: EEG is normal. There is no focal slowing, epileptiform discharges or seizure on EEG * Ophthalmology consultation for disconjugate gaze * DVT prophylaxis: Heparin 5000 Units subcutaneously twice a day. * Upon discharge recommend the patient to follow-up with a neurologist in ophthalmology team as an outpatient. Recommend to follow up with a neurologist within 1-2 weeks. The plan is discussed with patient and his nurse. Also discussed the case with the primary team Otherwise no additional neurological workup. Time with Patient: Less than 30
== END 2022-12-11 15:13 | disposition home health service (06) | DRG 65 ==
LOC: EC 10:31 → 3SCARD 13:46
PROVIDERS: ADMIT Internal Medicine; ATTEND Internal Medicine
PROC: 4A10X4Z Monitoring of Central Nervous Electrical Activity, External Approach (ICD-10-PCS; principal; 2022-12-10)
DX: I63.9 Cerebral infarction, unspecified (principal); G81.91 Hemiplegia, unspecified affecting right dominant side; R27.0 Ataxia, unspecified; F03.90 Unspecified dementia, unspecified severity, without behavioral disturbance, psychotic disturbance, mood disturbance, and anxiety; F10.20 Alcohol dependence, uncomplicated; H35.00 Unspecified background retinopathy; R55 Syncope and collapse; I11.0 Hypertensive heart disease with heart failure; Z91.81 History of falling; R29.6 Repeated falls; S09.90XA Unspecified injury of head, initial encounter; H49.21 Sixth [abducent] nerve palsy, right eye; H55.09 Other forms of nystagmus; R29.810 Facial weakness; W19.XXXA Unspecified fall, initial encounter; E78.5 Hyperlipidemia, unspecified; Z79.899 Other long term (current) drug therapy; Z90.49 Acquired absence of other specified parts of digestive tract; Z87.19 Personal history of other diseases of the digestive system; Z98.42 Cataract extraction status, left eye; Z98.41 Cataract extraction status, right eye; Z79.82 Long term (current) use of aspirin; Z95.0 Presence of cardiac pacemaker; Z95.1 Presence of aortocoronary bypass graft; Z95.5 Presence of coronary angioplasty implant and graft; Z96.1 Presence of intraocular lens
CPT/HCPCS: 36415; 70450; 70496; 70498; 71046; 80053; 80061; 82550; 83036; 84484; 85025; 85610; 85730; 90471; 90715; 93005; 93270; 93306; 93880; 94760; 95816; 96360; 99285